=== PATIENT | female | born 1980 | race Caucasian/White ===

== ENCOUNTER 2016-02-21 16:45 | Outpatient (CLI) | payer MEDICAID ==
[~2016-02-21] VITALS: Ht 157.5 cm; Wt 96.2 kg
[~2016-02-21 16:45] MED LIST: HYDR118S10 PO
--- OUTSIDE RECORDS SUMMARY | 2016-02-21 16:49 | XMS REPORT ---
Author LINN Quiroz Organization [employer] Address Unknown Phone Unavailable Care Team Providers Care Housing Director Name Role Phone LINN MERINO CP Unavailable Allergies No Known Allergies Problems Problem Type Condition Code Onset Dates Condition Status Problem General counseling for initiation of other contraceptive measures V25.02 Active Problem examination or test, negative result V72.41 Active Problem Screening for malignant neoplasm of the cervix V76.2 Active Problem Need for prophylactic vaccination and inoculation, Influenza V04.81 Active Assessment Positive test Z32.01 Active Medications No Known Medications Procedures Procedure Coding System Code Date URINE TEST CPT-4 39230 Oct 11, 2015 Results No Known Results Summary Purpose [employer] Submission
[2016-02-21 17:00] VITALS: BP 136/83
[2016-02-21 18:00] VITALS: BP 156/74
[2016-02-21] MEDS ORDERED: D5 LR IV SOLUTION 1,000 ML IV ONE ×2 (18:08→18:15)
[2016-02-21] MEDS ORDERED: PREN1TAB86 PO (18:08)
[2016-02-21] MEDS ORDERED: FLU TRIvalent (5 YOA+) 2016-17 (AFLURIA) 0.5 ML IM ONE (18:45)
[2016-02-21 18:48] VITALS: BP 146/76
[2016-02-21 20:03] VITALS: BP 136/72
--- NOTE | 2016-02-22 08:39 | Physician Query-Final Dx ---
ELMO HICKEY 02/22/16 0839: Clinic Account Progress/Dx Physician Query: Please give diagnosis Date of Service Feb 21, 2016 at 16:45 LUIS EDUARDO LIMA MD 02/22/16 1225: Clinic Account Progress/Dx DIAGNOSIS: Diagnosis false labor ELMO HICKEY Feb 22, 2016 08:39 LUIS EDUARDO LIMA MD Feb 22, 2016 12:25
[2016-05-09] MEDS ORDERED: BUTA1CAP39 PO (17:12)
[2016-05-12] MEDS ORDERED: FERR-74 PO (09:18)
[2016-05-12] MEDS ORDERED: LABE200T3 PO (09:18)
[2016-05-12] MEDS ORDERED: DOCU100C37 PO (09:18)
[2016-05-12] MEDS ORDERED: HYDR-3812 PO (09:18)
[2016-05-12] MEDS ORDERED: IBUP-1773 PO (09:18)
[2016-05-14] MEDS ORDERED: AMLO10TA4 PO (10:37)
== END 2016-02-21 20:47 | disposition home or self-care (01) ==
LOC: WSo 16:45 → LDRP 16:46 → WSo 20:47
PROVIDERS: ATTEND Obstetrics & Gynecology
DX: O47.03 False labor before 37 completed weeks of gestation, third trimester (principal); Z3A.23 23 weeks gestation of pregnancy
CPT/HCPCS: 90471; 96360; 96361; 99214

== ENCOUNTER 2016-03-13 14:55 | Outpatient (CLI) | payer MEDICAID ==
[~2016-03-13] VITALS: Ht 154.9 cm; Wt 95.3 kg
[2016-03-13 14:41] VITALS: BP 145/82
[~2016-03-13 14:55] MED LIST changes: +D5 LR IV SOLUTION 1,000 ML IV ONE; +PREN1TAB86 PO
--- OUTSIDE RECORDS SUMMARY | 2016-03-13 14:58 | XMS REPORT | Continuity of Care Document ---
Author Author [facility] Organization [facility] Address Unknown Phone Unavailable Care Team Providers Care Corporate Sales Representative Name Role Phone LUIS EDUARDO LIMA MD PCP Insurance Providers Payer Name Policy Number Subscriber Name Relationship [facility] [id number] Edie Castellanos I 16 Self / Same As Patient Advance Directives Directive Response Recorded Date/Time Advance Directives No 02/21/16 5:00pm Health Care Power of Paper Reel Operator No 02/21/16 5:00pm Organ Donor Yes 02/21/16 5:00pm Resuscitation Status Full Code 02/21/16 5:00pm Problems No problem information available. Medications Current Home Medications Medication Dose Units Route Directions Days/Qty Instructions Start Date Vit W-Ca,Fe,Fa(<1 Mg) 1 Each 1 Each Oral Daily 02/21/16 Past Home Medications Medication Directions Ordered Status Acetaminophen/Hydrocodone Bitart 1 Each Tablet, 1 Each Oral As Needed Discontinued Social History Social History Problem Response Recorded Date/Time Recent Foreign Travel No 02/21/2016 5:00pm Recent Infectious Disease Exposure No 02/21/2016 5:00pm Smoking Status Never a Smoker 02/21/2016 5:00pm Query Response Start Date Stop Date Smoking Status Never a Smoker Hospital Discharge Instructions No hospital discharge instructions. Plan of Care Discharge Date 02/21/16 8:47pm Instructions/Education Provided OB OUTPATIENT DISCHARGE Prescriptions See Medication Section Functional Status No functional status results. Allergies, Adverse Reactions, Alerts No known allergies. Immunizations Name Given Type FLU TRIvalent 5 years - Adult 02/21/16 Administered Vital Signs Acute Vital Signs Vital Response Date/Time Temperature (Fahrenheit) 98.2 degrees F (97.6 - 99.5) 02/21/2016 8:03pm Temperature (Calculated Celsius) 36.01815 degrees C (36.4 - 37.5) 02/21/2016 8:03pm Temperature Source Tympanic 02/21/2016 8:03pm Pulse Rate (adult) 70 bpm (60 - 90) 02/21/2016 8:03pm Respiratory Rate 18 bpm (12 - 24) 02/21/2016 8:03pm O2 Sat by Pulse Oximetry 98 % (88 - 100) 02/21/2016 6:48pm Blood Pressure 136/72 mm Hg 02/21/2016 8:03pm Blood Pressure Mean 93 mm Hg 02/21/2016 8:03pm Pain Numeric Pain Scale 0-No Pain 02/21/2016 8:03pm Height (Feet) 5 feet 02/21/2016 5:00pm Height (Inches) 2.00 inches 02/21/2016 5:00pm Height (Calculated Centimeters) 157.230186 cm 02/21/2016 5:00pm Weight (Pounds) 212 pounds 02/21/2016 5:00pm Weight (Ounces) 0.0 oz 02/21/2016 5:00pm Weight (Calculated Grams) 50908.58 gm 02/21/2016 5:00pm Weight (Calculated Kilograms) 96.968430 kilograms 02/21/2016 5:00pm Calculated BMI 38.8 02/21/2016 5:00pm Results No known relevant diagnostic tests, laboratory data and/or discharge summary. Procedures No known history of procedures. Encounters Encounter Location Arrival/Admit Date Discharge/Depart Date Attending Provider Departed Clinic [facility] 02/21/16 4:45pm 02/21/16 8: 47pm LUIS EDUARDO LIMA MD
[2016-03-13] MEDS ORDERED: D5 LR IV SOLUTION 1,000 ML IV SCH (15:30)
[2016-03-13 15:35] LABS: BILIRUBIN,URINE NEGATIVE (NEGATIVE); KETONES,URINE 3+ (NEGATIVE); LEUKOCYTE ESTERASE ,URINE NEGATIVE (NEGATIVE); NITRITE,URINE NEGATIVE (NEGATIVE); PH,URINE 6 (5-9); PROTEIN,URINE 2+ (NEGATIVE); UROBILINOGEN,URINE 1 MG/DL (NORMAL)
[2016-03-13 15:47] LABS: BASOPHILS % (AUTO) 0 % (0-10); EOSINOPHILS # (AUTO) 0.2 10^3/uL (0.0-0.3); EOSINOPHILS % (AUTO) 3 % (0-10); LYMPHOCYTES # (AUTO) 1.2 X 10^3 (1.0-4.0); LYMPHOCYTES % (AUTO) 20 % (12-44); MEAN CORPUSCULAR HEMOGLOBIN 32 PG (25-34); MEAN CORPUSCULAR HGB CONC 35 G/DL (32-36); MEAN CORPUSCULAR VOLUME 89 FL (80-99); MEAN PLATELET VOLUME 10.3 FL (7.4-10.4); MONOCYTES # (AUTO) 0.4 X 10^3 (0.0-1.0); MONOCYTES % (AUTO) 7 % (0-12); NEUTROPHILS # (AUTO) 4.3 X 10^3 (1.8-7.8); NEUTROPHILS % (AUTO) 70 % (42-75); PLATELET COUNT 229 10^3/uL (130-400); RED BLOOD COUNT 3.68 10^6/uL (4.35-5.85); RED CELL DISTRIBUTION WIDTH 12.7 % (10.0-14.5); WHITE BLOOD COUNT 6.1 10^3/uL (4.3-11.0)
[2016-03-13 15:53] LABS: SQUAMOUS EPITHELIAL CELL,UR 25-50 /HPF; WBC,URINE 0-2 /HPF
[2016-03-13 15:54] VITALS: BP 140/87
[2016-03-13 16:06] LABS: BAND NEUTROPHILS 4 %; BASOPHILS % (MANUAL) 1 %; EOSINOPHILS % (MANUAL) 3 %; LYMPHOCYTES % (MANUAL) 18 %; NEUTROPHILS % (MANUAL) 69 %
[2016-03-13 16:11] LABS: ALANINE AMINOTRANSFERASE 10 U/L (0-55); ALBUMIN 3.2 G/DL (3.2-4.5); ANION GAP 9 MMOL/L (5-14); ASPARTATE AMINO TRANSFERASE 10 U/L (5-34); BILIRUBIN,TOTAL 0.3 MG/DL (0.1-1.0); BLOOD UREA NITROGEN 4 MG/DL (7-18); BUN/CREATININE RATIO 7; CALCIUM 8.2 MG/DL (8.5-10.1); CARBON DIOXIDE 24 MMOL/L (21-32); CHLORIDE 104 MMOL/L (98-107); CREATININE SERUM 0.54 MG/DL (0.60-1.30); GFR ESTIMATED > 60; GLUCOSE 91 MG/DL (70-105); POTASSIUM 2.6 MMOL/L (3.6-5.0); SODIUM 137 MMOL/L (135-145); TOTAL PROTEIN 5.6 G/DL (6.4-8.2)
[2016-03-13 16:43] VITALS: BP 162/71
[2016-03-13 17:01] LABS: PROTEIN/CREATININE RATIO 0.13
[2016-03-13] MEDS: KCL 20 MEQ TAB (K-DUR) PO NR ×2 (17:50→17:51)
[2016-03-13 17:58] VITALS: BP 173/90
[2016-03-13 18:03] VITALS: BP 144/74
[2016-03-13] MEDS ORDERED: ASPI-999 PO (18:23)
[2016-03-13 18:35] VITALS: BP 144/74
--- NOTE | 2016-03-14 08:30 | Physician Query-Final Dx ---
ELMO HICKEY 03/14/16 0830: Clinic Account Progress/Dx Physician Query: Please give diagnosis Date of Service Mar 13, 2016 at 14:55 LUIS EDUARDO LIMA MD 03/14/16 1615: Clinic Account Progress/Dx DIAGNOSIS: Diagnosis viral gastroenteritis in ELMO HICKEY Mar 14, 2016 08:30 LUIS EDUARDO LIMA MD Mar 14, 2016 16:15
[2016-05-09] MEDS ORDERED: BUTA1CAP39 PO (17:12)
[2016-05-12] MEDS ORDERED: DOCU100C37 PO (09:18)
[2016-05-12] MEDS ORDERED: LABE200T3 PO (09:18)
[2016-05-12] MEDS ORDERED: HYDR-3812 PO (09:18)
[2016-05-12] MEDS ORDERED: IBUP-1773 PO (09:18)
[2016-05-12] MEDS ORDERED: FERR-74 PO (09:18)
[2016-05-14] MEDS ORDERED: AMLO10TA4 PO (10:37)
== END 2016-03-13 18:35 | disposition home or self-care (01) ==
LOC: WSo 14:55 → LDRP 14:55 → WSo 18:35
PROVIDERS: ATTEND Obstetrics & Gynecology
DX: O98.512 Other viral diseases complicating pregnancy, second trimester (principal); A08.4 Viral intestinal infection, unspecified; Z3A.26 26 weeks gestation of pregnancy
CPT/HCPCS: 36415; 80053; 81000; 82570; 84156; 85007; 85027; 87088; 96360; 96361; 99214

== ENCOUNTER → 2016-04-13 | Outpatient (CLI) | payer MEDICAID ==
[~2016-04-13] MED LIST changes: +AMLO10TA4 PO; +ASPI-999 PO; +BETA6VIA IM; +BUTA1CAP39 PO; -D5 LR IV SOLUTION 1,000 ML IV ONE; +DOCU100C37 PO; +FERR-74 PO; +HYDR-3812 PO; +IBUP-1773 PO; +LABE200T3 PO; +METH250T PO; +METH500T2 PO
--- OUTSIDE RECORDS SUMMARY | 2016-04-13 09:47 | XMS REPORT | Continuity of Care Document ---
Author Author [facility] Organization [facility] Address Unknown Phone Unavailable Care Team Providers Care Naval Aircrewman Name Role Phone LUIS EDUARDO LIMA MD PCP Insurance Providers Payer Name Policy Number Subscriber Name Relationship [facility] [id number] Edie Castellanos I 18 Self / Same As Patient Advance Directives Directive Response Recorded Date/Time Advance Directives No 02/21/16 5:00pm Health Care Power of Conditioning Machine Operator No 02/21/16 5:00pm Organ Donor Yes [...] - 99.5) 02/21/2016 8:03pm Temperature (Calculated Celsius) 36.89284 degrees C (36.4 - 37.5) 02/21/2016 8:03pm [...] 2.00 inches 02/21/2016 5:00pm Height (Calculated Centimeters) 157.042034 cm 02/21/2016 5:00pm Weight (Pounds) 212 pounds 02/21/2016 5:00pm Weight (Ounces) 0.0 oz 02/21/2016 5:00pm Weight (Calculated Grams) 89507.58 gm 02/21/2016 5:00pm Weight (Calculated Kilograms) 96.606801 kilograms 02/21/2016 5:00pm Calculated BMI 38.8 02/21/2016 5:00pm Results No known relevant diagnostic tests, laboratory data and/or discharge summary. Procedures No known history of procedures. Encounters Encounter Location Arrival/Admit Date Discharge/Depart Date Attending Provider Departed Clinic [facility] 02/21/16 4:45pm 02/21/16 8: 47pm LUIS EDUARDO LIMA MD
[2016-04-13 10:02] LABS: PROTEIN/CREATININE RATIO 0.22
== END ==
LOC: LABNPT 09:30
PROVIDERS: ATTEND Obstetrics & Gynecology
DX: O14.03 Mild to moderate pre-eclampsia, third trimester (principal)
CPT/HCPCS: 82570; 84156

== ENCOUNTER 2016-04-22 18:10 | Observation (INO) | payer MEDICAID ==
[~2016-04-22] VITALS: Ht 154.9 cm; Wt 94.8 kg
[2016-04-22] VITALS (10 sets, daily range): BP systolic 150–191; BP diastolic 77–109
[~2016-04-22 18:10] MED LIST changes: -AMLO10TA4 PO; -BETA6VIA IM; -BUTA1CAP39 PO; -DOCU100C37 PO; -FERR-74 PO; -HYDR-3812 PO; -IBUP-1773 PO; -LABE200T3 PO; -METH250T PO; -METH500T2 PO
--- OUTSIDE RECORDS SUMMARY | 2016-04-22 18:24 | XMS REPORT | Continuity of Care Document ---
Author Author [facility] Organization [facility] Address Unknown Phone Unavailable Care Team Providers Care Decaler Name Role Phone LUIS EDUARDO LIMA MD PCP Insurance Providers Payer Name Policy Number Subscriber Name Relationship [facility] [id number] Edie Castellanos I 16 Self / Same As Patient Advance Directives Directive Response Recorded Date/Time Advance Directives No 02/21/16 5:00pm Health Care Power of Supply Assistant No 02/21/16 5:00pm Organ Donor Yes 02/21/16 [...] - 99.5) 02/21/2016 8:03pm Temperature (Calculated Celsius) 36.24847 degrees C (36.4 - 37.5) 02/21/2016 8:03pm [...] 2.00 inches 02/21/2016 5:00pm Height (Calculated Centimeters) 157.116897 cm 02/21/2016 5:00pm Weight (Pounds) 212 pounds 02/21/2016 5:00pm Weight (Ounces) 0.0 oz 02/21/2016 5:00pm Weight (Calculated Grams) 87670.58 gm 02/21/2016 5:00pm Weight (Calculated Kilograms) 96.538623 kilograms 02/21/2016 5:00pm Calculated BMI 38.8 02/21/2016 5:00pm Results No known relevant diagnostic tests, laboratory data and/or discharge summary. Procedures No known history of procedures. Encounters Encounter Location Arrival/Admit Date Discharge/Depart Date Attending Provider Departed Clinic [facility] 02/21/16 4:45pm 02/21/16 8: 47pm LUIS EDUARDO LIMA MD
[2016-04-22] MEDS ORDERED: METH250T PO (18:33)
[2016-04-22 18:47] LABS: RED BLOOD COUNT 3.47 10^6/uL (4.35-5.85); RED CELL DISTRIBUTION WIDTH 12.7 % (10.0-14.5); WHITE BLOOD COUNT 5.4 10^3/uL (4.3-11.0)
[2016-04-22 19:07] LABS: ALANINE AMINOTRANSFERASE 13 U/L (0-55); ALBUMIN 3.2 G/DL (3.2-4.5); ANION GAP 13 MMOL/L (5-14); ASPARTATE AMINO TRANSFERASE 15 U/L (5-34); BILIRUBIN,TOTAL 0.3 MG/DL (0.1-1.0); BLOOD UREA NITROGEN 7 MG/DL (7-18); BUN/CREATININE RATIO 13; CALCIUM 8.4 MG/DL (8.5-10.1); CARBON DIOXIDE 22 MMOL/L (21-32); CHLORIDE 104 MMOL/L (98-107); CREATININE SERUM 0.56 MG/DL (0.60-1.30); GFR ESTIMATED > 60; GLUCOSE 91 MG/DL (70-105); LACTATE DEHYDROGENASE 214 U/L (125-220); SODIUM 139 MMOL/L (135-145); TOTAL PROTEIN 5.8 G/DL (6.4-8.2); URIC ACID 3.8 MG/DL (2.6-7.2)
[2016-04-22 19:08] LABS: PROTEIN/CREATININE RATIO 0.19
[2016-04-22 19:10] LABS: POTASSIUM 2.5 MMOL/L (3.6-5.0)
[2016-04-22] MEDS ORDERED: METHYLDOPA 250 MG PO SCH (20:00)
[2016-04-23 00:57] VITALS: BP 134/75
[2016-04-23 05:01] VITALS: BP 155/81
[2016-04-23] MEDS ORDERED: METHYLDOPA 250 MG PO SCH (06:00)
[2016-04-23] MEDS ORDERED: METH500T2 PO (07:18)
[2016-04-23 07:27] VITALS: BP 145/68
[2016-04-23 07:50] VITALS: BP 145/68
--- OUTSIDE RECORDS SUMMARY | 2016-04-24 10:38 | XMS REPORT | Continuity of Care Document ---
Author Author [facility] Organization [facility] Address Unknown Phone Unavailable Care Team Providers Care Marble Worker Name Role Phone LUIS EDUARDO LIMA MD PCP Insurance Providers Payer Name Policy Number Subscriber Name Relationship [facility] [id number] Edie Castellanos I 16 Self / Same As Patient Advance Directives Directive Response Recorded Date/Time Advance Directives No 04/22/16 6:27pm Health Care Power of Documentation Designer No 04/22/16 6:27pm Organ Donor No 04/22/16 6:27pm Resuscitation Status Full Code 04/22/16 6:27pm Problems No problem information available. Medications Current Home Medications Medication Dose Units Route Directions Days/Qty Instructions Start Date Vit W-Ca,Fe,Fa(<1 Mg) 1 Each 1 Each Oral Daily 02/21/16 Aspirin 81 Mg 81 Mg Oral Daily 03/13/16 Methyldopa 500 Mg 500 Mg Oral Twice A Day 04/23/16 Past Home Medications Medication Directions Ordered Status Acetaminophen/Hydrocodone Bitart 1 Each Tablet, 1 Each Oral As Needed Discontinued Methyldopa 250 Mg Tablet, 250 Mg Oral Twice A Day 04/22/16 Discontinued Social History Social History Problem Response Recorded Date/Time Recent Foreign Travel No 04/22/2016 6:27pm Recent Infectious Disease Exposure No 04/22/2016 6:27pm Smoking Status Never a Smoker 04/22/2016 6:27pm Query Response Start Date Stop Date Smoking Status Never a Smoker Hospital Discharge Instructions No hospital discharge instructions. Plan of Care Discharge Date 04/23/16 7:15am Disposition IP-[facility] TO CODE Instructions/Education Provided OB OUTPATIENT DISCHARGE Forms Provided [facility]/OP Prescriptions See Medication Section Functional Status Query Response Date Recorded Patient Orientation Person Place Time Situation Normal For Age April 24, 2016 10:35am Allergies, Adverse Reactions, Alerts No known allergies. Immunizations No immunization records. Vital Signs Acute Vital Signs Vital Response Date/Time Temperature (Fahrenheit) 98.3 degrees F (97.6 - 99.5) 04/23/2016 7:50am Temperature (Calculated Celsius) 36.82412 degrees C (36.4 - 37.5) 04/22/2016 8:16pm Temperature Source Tympanic 04/23/2016 7:50am Pulse Rate (adult) 78 bpm (60 - 90) 04/23/2016 7:50am Respiratory Rate 18 bpm (12 - 24) 04/23/2016 7:50am Blood Pressure 145/68 mm Hg 04/23/2016 7:50am Blood Pressure Mean 93 mm Hg 04/23/2016 7:27am Pain Numeric Pain Scale 0-No Pain 04/23/2016 7:50am Height (Feet) 5 feet 04/22/2016 6:26pm Height (Inches) 1.00 inches 04/22/2016 6:26pm Height (Calculated Centimeters) 154.002356 cm 04/22/2016 6:26pm Weight (Pounds) 209 pounds 04/22/2016 6:26pm Weight (Ounces) 0.0 oz 04/22/2016 6:26pm Weight (Calculated Grams) 77819.81 gm 04/22/2016 6:26pm Weight (Calculated Kilograms) 94.429507 kilograms 04/22/2016 6:26pm Calculated BMI 39.5 04/22/2016 6:26pm Results Laboratory Results Test Name Result Units Flags Reference Collection Date/Time Result Date/ Time Comments Urine Protein 31 MG/DL H 6-12 04/13/2016 9:30am 04/13/2016 10:07am Urine Creatinine 142 MG/DL H 30-125 04/13/2016 9:30am 04/13/2016 10:07am Urine Protein/Creatinine Ratio 0.22 04/13/2016 9:30am 04/13/2016 10 :07am Pending Laboratory Results Test Name Collection Date/Time Procedures No known history of procedures. Encounters Encounter Location Arrival/Admit Date Discharge/Depart Date Attending Provider Admitted Inpatient (obs) [facility] 04/22/16 6:10pm LUIS EDUARDO LIMA MD Registered Clinic [facility] 04/13/16 9:30am LUIS EDUARDO LIMA MD
--- NOTE | 2016-04-25 07:00 | Physician Query-Final Dx ---
MANFRED AVILA 04/25/16 0700: Clinic Account Progress/Dx Physician Query: Please give diagnosis Date of Service Progress Note: Manfred [phone] LUIS EDUARDO LIMA MD 04/25/16 0803: Clinic Account Progress/Dx DIAGNOSIS: Diagnosis ERNIE MANFRED AVILA Apr 25, 2016 07:00 LUIS EDUARDO LIMA MD Apr 25, 2016 08:03
[2016-05-09] MEDS ORDERED: BUTA1CAP39 PO (17:12)
[2016-05-12] MEDS ORDERED: DOCU100C37 PO (09:18)
[2016-05-12] MEDS ORDERED: LABE200T3 PO (09:18)
[2016-05-12] MEDS ORDERED: FERR-74 PO (09:18)
[2016-05-12] MEDS ORDERED: HYDR-3812 PO (09:18)
[2016-05-12] MEDS ORDERED: IBUP-1773 PO (09:18)
[2016-05-14] MEDS ORDERED: AMLO10TA4 PO (10:37)
== END 2016-04-23 07:15 | disposition home or self-care (01) ==
LOC: LDRP 18:10 → WSo 18:21 → LDRP 18:21 → UNDOADMOB 21:59 → LDRP 21:59 → WSo 21:59 → LDRP 04-23 07:50 → UNDODISOB 04-23 07:50 → EDSTATUS 04-24 10:34
PROVIDERS: ADMIT Obstetrics & Gynecology; ATTEND Obstetrics & Gynecology
DX: O13.3 Gestational [pregnancy-induced] hypertension without significant proteinuria, third trimester (principal); Z3A.32 32 weeks gestation of pregnancy
CPT/HCPCS: 36415; 80053; 82570; 83615; 84156; 84550; 85027; 99211; G0378

== ENCOUNTER 2016-05-07 17:05 | Observation (INO) | payer MEDICAID ==
[2016-05-07] VITALS (11 sets, daily range): BP systolic 144–175; BP diastolic 78–90
[~2016-05-07] VITALS: Ht 154.9 cm; Wt 97.1 kg
[~2016-05-07 17:05] MED LIST changes: +METH250T PO; +METH500T2 PO
--- OUTSIDE RECORDS SUMMARY | 2016-05-07 17:11 | XMS REPORT | Continuity of Care Document ---
Author Author [facility] Organization [facility] Address Unknown Phone Unavailable Care Team Providers Care Retail Wireless Sales Consultant Name Role Phone LUIS EDUARDO LIMA MD PCP Insurance Providers Payer Name Policy Number Subscriber Name Relationship [facility] [id number] Edie Castellanos I 16 Self / Same As Patient Advance Directives Directive Response Recorded Date/Time Advance Directives No 04/22/16 6:27pm Health Care Power of Seafood Clerk No 04/22/16 6:27pm Organ Donor No 04/22/16 [...] of Care Discharge Date 04/23/16 7:15am Disposition IP-[facility] TO CODE Instructions/Education Provided OB OUTPATIENT DISCHARGE [...] - 99.5) 04/23/2016 7:50am Temperature (Calculated Celsius) 36.49596 degrees C (36.4 - 37.5) 04/22/2016 8:16pm [...] 1.00 inches 04/22/2016 6:26pm Height (Calculated Centimeters) 154.526878 cm 04/22/2016 6:26pm Weight (Pounds) 209 pounds 04/22/2016 6:26pm Weight (Ounces) 0.0 oz 04/22/2016 6:26pm Weight (Calculated Grams) 87467.81 gm 04/22/2016 6:26pm Weight (Calculated Kilograms) 94.961256 kilograms 04/22/2016 6:26pm Calculated BMI 39.5 04/22/2016 [...] Attending Provider Admitted Inpatient (obs) [facility] 04/22/16 6:10pm LUIS EDUARDO LIMA MD Registered Clinic [facility] 04/13/16 9:30am LUIS EDUARDO LIMA MD
[2016-05-07 18:02] LABS: BASOPHILS % (AUTO) 0 % (0-10); EOSINOPHILS # (AUTO) 0.1 10^3/uL (0.0-0.3); EOSINOPHILS % (AUTO) 2 % (0-10); LYMPHOCYTES # (AUTO) 1.1 X 10^3 (1.0-4.0); LYMPHOCYTES % (AUTO) 23 % (12-44); MEAN CORPUSCULAR HEMOGLOBIN 29 PG (25-34); MEAN CORPUSCULAR HGB CONC 33 G/DL (32-36); MEAN CORPUSCULAR VOLUME 86 FL (80-99); MEAN PLATELET VOLUME 9.7 FL (7.4-10.4); MONOCYTES # (AUTO) 0.4 X 10^3 (0.0-1.0); MONOCYTES % (AUTO) 9 % (0-12); NEUTROPHILS # (AUTO) 3.1 X 10^3 (1.8-7.8); NEUTROPHILS % (AUTO) 66 % (42-75); PLATELET COUNT 221 10^3/uL (130-400); RED BLOOD COUNT 3.41 10^6/uL (4.35-5.85); RED CELL DISTRIBUTION WIDTH 13.1 % (10.0-14.5); WHITE BLOOD COUNT 4.7 10^3/uL (4.3-11.0)
[2016-05-07 18:19] LABS: ALANINE AMINOTRANSFERASE 7 U/L (0-55); ALBUMIN 3.1 G/DL (3.2-4.5); ANION GAP 12 MMOL/L (5-14); ASPARTATE AMINO TRANSFERASE 10 U/L (5-34); BILIRUBIN,TOTAL 0.4 MG/DL (0.1-1.0); BLOOD UREA NITROGEN 6 MG/DL (7-18); BUN/CREATININE RATIO 11; CALCIUM 8.1 MG/DL (8.5-10.1); CARBON DIOXIDE 22 MMOL/L (21-32); CHLORIDE 106 MMOL/L (98-107); CREATININE SERUM 0.57 MG/DL (0.60-1.30); GFR ESTIMATED > 60; GLUCOSE 83 MG/DL (70-105); POTASSIUM 2.6 MMOL/L (3.6-5.0); SODIUM 140 MMOL/L (135-145); TOTAL PROTEIN 5.5 G/DL (6.4-8.2); URIC ACID 3.6 MG/DL (2.6-7.2)
--- NOTE | 2016-05-07 18:43 | Diagnostic Imaging Report ---
INDICATION: . Hypertension. No reactive tracing. COMPARISON: None. FINDINGS: Real-time grayscale and Doppler ultrasound of the gravid uterus is performed. Biophysical profile is performed as well. There is a single live intrauterine gestation in cephalic position. Estimated gestational age based on LMP is 34 weeks 1 day. Estimated gestational age based on today's ultrasound is 34 weeks 6 days. Cardiac activity is present with a heart rate of 165 beats per minute. Placenta appears anterior without previa. Growth parameters measurements are as follows: BPD: 8.5 cm (34 weeks 3 days). HC: 30.6 cm (34 weeks 1 day). AC: 32.2 cm (36 weeks 1 day). FL: 6.7 cm (34 weeks 4 days). HC/AC: 0.95. weight: 2644 g +/-386 g/5 lbs 13 oz +/-14 ounces (78th percentile). Biophysical profile score: movement: 2/2. breathin/2. posture and tone: 2/2. Amniotic fluid volume: 2/2 (amniotic fluid index is 7.6 cm). IMPRESSION: 1. Live intrauterine gestation in cephalic position without acute abnormality detected. Growth parameters and ratios as described above. 2. biophysical profile score is 8/8. heart rate is 165 beats per minute. Dictated by: Dictated on workstation # [id number]
[2016-05-07 19:39] LABS: PROTEIN/CREATININE RATIO 0.13
[2016-05-07] MEDS ORDERED: NS IV 1000 ML 1,000 ML ONE (20:10)
[2016-05-07] MEDS: NS IV 1000 ML 1,000 ML IV SCH (20:36)
[2016-05-07] MEDS ORDERED: PROMETHAZINE INJ 25 MG/ML (PHENERGAN) AMP IVP ONE (21:00)
[2016-05-07] MEDS ORDERED: BETAMETHASONE ACE/NA PHOS 6 MG/ML (CELESTONE SOLUSPAN) IM ONE (21:00)
[2016-05-07] MEDS ORDERED: ACETAMINOPHEN 500 MG TAB (TYLENOL) PO ONE (21:00)
[2016-05-07] MEDS ORDERED: ACETAMINOPHEN 500 MG TAB (TYLENOL) ONE (21:11)
[2016-05-07] MEDS ORDERED: PROMETHAZINE INJ 25 MG/ML (PHENERGAN) AMP ONE (21:13)
[2016-05-08] VITALS: BP 133/70
[2016-05-08 05:00] VITALS: BP 139/71
[2016-05-08] MEDS: NS IV 1000 ML 1,000 ML IV SCH (06:43)
[2016-05-08 07:42] VITALS: BP 141/78
[2016-05-08] MEDS ORDERED: BETA6VIA IM (08:12)
[2016-05-08] MEDS ORDERED: METH500T2 PO (08:15)
--- NOTE | 2016-05-08 08:15 | History & Physical-OB/GYN ---
History of Present Illness History of Present Illness Reason for visit/HPI Severe SIFUENTES and Elevated BP. This 35-year-old female is a patient of Dr. Villalobos's and I admitted last night for elevations in blood pressure associated with headache. This morning the patient reports feeling somewhat better. Still has a slight headache, denies changes in vision, denies right upper quadrant pain. Yesterday evening she was admitted with blood pressures in the 160s over 90s, a preeclampsia lab workup was performed, biophysical profile, and monitoring overnight. Date of Admission May 07, 2016 at 8:03 pm I consulted on this patient on 05/08/16 08:09 Attending Physician Linn Fraire DO Admitting Physician Baltazar Villalobos MD Consult Allergies and Home Medications Allergies Coded Allergies: No Known Drug Allergies (Unverified , 12/24/10) Home Medications Aspirin 81 Mg Tab.chew 81 MG PO DAILY (Reported) Methyldopa 500 Mg Tablet 500 MG PO BID (Reported) Vit W-Ca,Fe,FA(<1 mg) 1 Each Tablet 1 EACH PO DAILY (Reported) Past Tcztyut-Enmvvx-Ybkibm Hx Patient Social History Smoking Status: Never a Smoker Physical Abuse Screen: No Sexual Abuse: No Recent Foreign Travel: No Contact w/other who traveled: No Recent Infectious Disease Expo: No Immunizations Up To Date Date of Influenza Vaccine: Mar 09, 2016 Reproductive System Hx : 4 Hx Para: 3 Hx Total # of Abortions (Spona: 0 Constitutional: see HPI EENTM: see HPI Respiratory: see HPI Cardiovascular: see HPI Gastrointestinal: see HPI Genitourinary: see HPI : Yes Musculoskeletal: see HPI Skin: see HPI Psychiatric/Neurological: See HPI All Other Systems Reviewed Negative Unless Noted: Yes Physical Exam Physical Exam Vital Signs Vital Signs Date Time Temp Pulse Resp B/P Pulse Ox O2 Delivery O2 Flow Rate FiO2 05/08/16 07:42 97.9 70 18 141/78 96 Room Air 05/08/16 05:00 96.8 80 20 139/71 Room Air 05/08/16 00:00 96.9 80 20 133/70 Room Air 05/07/16 21:29 98.8 05/07/16 20:20 80 20 160/82 Room Air 05/07/16 20:05 77 20 148/81 Room Air 05/07/16 19:50 80 20 161/81 Room Air 05/07/16 19:35 88 20 145/79 Room Air 05/07/16 19:20 82 20 159/82 Room Air 05/07/16 19:05 76 20 160/78 Room Air 05/07/16 18:50 80 20 144/82 Room Air 05/07/16 18:35 86 20 154/81 Room Air 05/07/16 18:18 90 20 165/88 Room Air 05/07/16 17:35 86 20 159/79 Room Air 05/07/16 17:20 91 20 175/90 Room Air I & O 05/08/16 07:00 Intake Total 980 ml Balance 980 ml Capillary Refill : Labs Laboratory Tests 05/07/16 17:20: Urine Creatinine 159H, Urine Protein 20H, Urine Protein/Creatinine Ratio 0.13 05/07/16 17:56: Alanine Aminotransferase (ALT/SGPT) 7, Albumin 3.1L, Alkaline Phosphatase 91, Anion Gap 12, Aspartate Amino Transf (AST/SGOT) 10, BUN/Creatinine Ratio 11, Basophils # (Auto) 0.0, Basophils (%) (Auto) 0, Blood Urea Nitrogen 6L, Calcium Level 8.1L, Carbon Dioxide Level 22, Chloride Level 106, Creatinine 0.57L, Eosinophils # (Auto) 0.1, Eosinophils (%) (Auto) 2, Estimat Glomerular Filtration Rate > 60, Glucose Level 83, Hematocrit 29L, Hemoglobin 9.8L, Lymphocytes # (Auto) 1.1, Lymphocytes (%) (Auto) 23, Mean Corpuscular Hemoglobin 29, Mean Corpuscular Hemoglobin Concent 33, Mean Corpuscular Volume 86, Mean Platelet Volume 9.7, Monocytes # (Auto) 0.4, Monocytes (%) (Auto) 9, Neutrophils # (Auto) 3.1, Neutrophils (%) (Auto) 66, Platelet Count 221, Potassium Level 2.6L, Red Blood Count 3.41L, Red Cell Distribution Width 13.1, Sodium Level 140, Total Bilirubin 0.4, Total Protein 5.5L, Uric Acid 3.6, White Blood Count 4.7 Radiology Studies INDICATION: . Hypertension. No reactive tracing. COMPARISON: None. FINDINGS: Real-time grayscale and Doppler ultrasound of the gravid uterus is performed. Biophysical profile is performed as well. There is a single live intrauterine gestation in cephalic position. Estimated gestational age based on LMP is 34 weeks 1 day. Estimated gestational age based on today's ultrasound is 34 weeks 6 days. Cardiac activity is present with a heart rate of 165 beats per minute. Placenta appears anterior without previa. Growth parameters measurements are as follows: BPD: 8.5 cm (34 weeks 3 days). HC: 30.6 cm (34 weeks 1 day). AC: 32.2 cm (36 weeks 1 day). FL: 6.7 cm (34 weeks 4 days). HC/AC: 0.95. weight: 2644 g +/-386 g/5 lbs 13 oz +/-14 ounces (78th percentile). Biophysical profile score: movement: 2/2. breathin/2. posture and tone: 2/2. Amniotic fluid volume: 2/2 (amniotic fluid index is 7.6 cm). IMPRESSION: 1. Live intrauterine gestation in cephalic position without acute abnormality detected. Growth parameters and ratios as described above. 2. biophysical profile score is 8/8. heart rate is 165 beats per minute. Dictated by: Dictated on workstation # [id number] Dict: 05/07/16 182 Trans: 05/07/16 1849 [id number] Interpreted by: SURYA GANN DO Electronically signed by:SURYA GANN DO 05/07/16 9001 General Appearance: No Apparent Distress, WD/WN Respiratory: Normal Breath Sounds Cardiovascular: Regular Rate, Rhythm Abdominal: non tender (uterine fundus appropriate for gestational age), soft Cervix: Other (closed, thick, -3) Cervix OS: closed Uterus: Other (gravid) Comments Overnight NST reactive: BL 140 moderate variability + accels no decels. Contractions irregular q 4-15 min Assessment/Plan Assessment and Plan I am having the patient increase her methyldopa dose to 500 mg 3 times a day, and I discussed with the patient being on modified bed rest for the next week to help control her blood pressures at home. The patient was supposed to come in and have an NST tomorrow I'm having her return on Saturday to have an NST. She has an appointment with Dr. Villalobos early next week I told her that if she continues to do well to keep her appointment with Dr. Villalobos. labor precautions as well as preeclampsia precautions reviewed with the patient in detail all of her questions were answered. Betamethasone x 2 doses 24 hr 05/07-05/08 were given for possible delivery. Problems: Admission Diagnosis 35 yo @ 34.2 weeks Gestational HTN, likely superimposed on CHTN Headache Previous c/s Advanced maternal age Obesity FENECH,LINN Roberts DO May 08, 2016 8:15 am Hemoglobin 9.8 L 11.5-16.0 G/DL Lymphocytes # (Auto) 1.1 1.0-4.0 X 10^3 Lymphocytes (%) (Auto) 23 12-44 % Mean Corpuscular Hemoglobin 29 25-34 PG Mean Corpuscular Hemoglobin Concent 33 32-36 G/DL Mean Corpuscular Volume 86 80-99 FL Mean Platelet Volume 9.7 7.4-10.4 FL Monocytes # (Auto) 0.4 0.0-1.0 X 10^3 Monocytes (%) (Auto) 9 0-12 % Neutrophils # (Auto) 3.1 1.8-7.8 X 10^3 Neutrophils (%) (Auto) 66 42-75 % Platelet Count 221 130-400 10^3/uL Potassium Level 2.6 L 3.6-5.0 MMOL/L Red Blood Count 3.41 L 4.35-5.85 10^6/uL Red Cell Distribution Width 13.1 10.0-14.5 % Sodium Level 140 135-145 MMOL/L Total Bilirubin 0.4 0.1-1.0 MG/DL Total Protein 5.5 L 6.4-8.2 G/DL Uric Acid 3.6 2.6-7.2 MG/DL White Blood Count 4.7 4.3-11.0 10^3/uL INDICATION: . Hypertension. No reactive tracing. COMPARISON: None. FINDINGS: Real-time grayscale and Doppler ultrasound of the gravid uterus is performed. Biophysical profile is performed as well. There is a single live intrauterine gestation in cephalic position. Estimated gestational age based on LMP is 34 weeks 1 day. Estimated gestational age based on today's ultrasound is 34 weeks 6 days. Cardiac activity is present with a heart rate of 165 beats per minute. Placenta appears anterior without previa. Growth parameters measurements are as follows: BPD: 8.5 cm (34 weeks 3 days). HC: 30.6 cm (34 weeks 1 day). AC: 32.2 cm (36 weeks 1 day). FL: 6.7 cm (34 weeks 4 days). HC/AC: 0.95. weight: 2644 g +/-386 g/5 lbs 13 oz +/-14 ounces (78th percentile). Biophysical profile score: movement: 2/2. breathin/2. posture and tone: 2/2. Amniotic fluid volume: 2/2 (amniotic fluid index is 7.6 cm). IMPRESSION: 1. Live intrauterine gestation in cephalic position without acute abnormality detected. Growth parameters and ratios as described above. 2. biophysical profile score is 8/8. heart rate is 165 beats per minute. Dictated by: Dictated on workstation # [id number] Dict: 05/07/16 1826 Trans: 05/07/16 1849 [id number] Interpreted by: SURYA GANN DO Electronically signed by:SURYA GANN DO 05/07/16 1852 LINN FRAIRE DO May 08, 2016 8:15 am
[2016-05-08 08:30] VITALS: BP 141/78
[2016-05-09] MEDS ORDERED: BUTA1CAP39 PO (17:12)
--- OUTSIDE RECORDS SUMMARY | 2016-05-13 05:06 | XMS REPORT ---
Author LINN Quiroz Organization [employer] Address Unknown Phone Unavailable Care Team Providers Care Bander Hand Name Role Phone LINN MERINO CP Unavailable [...] Coding System Code Date URINE TEST CPT-4 68152 Oct 11, 2015 Results No Known Results Summary Purpose Next [employer] Submission
--- NOTE | 2016-05-14 11:04 | Physician Query-Final Dx ---
JOHN FAUST 05/14/16 1104: Final Diagnosis Give Final Diagnosis Please give Final Diagnosis LINN QUISPE DO 05/14/16 1136: Final Diagnosis Give Final Diagnosis 34.5 week RLTCS Uncontrolled GHTN TAIA JOHN FAUST May 14, 2016 11:04 LINN QUISPE DO May 14, 2016 11:36
== END 2016-05-08 08:13 | disposition home or self-care (01) ==
LOC: LDRP 17:05 → WSo 17:07 → UNDOADMOB 20:03 → LDRP 20:03 → WSo 20:03 → UNDODISOB 05-08 08:30 → EDSTATUS 05-09 13:00
PROVIDERS: ADMIT Obstetrics & Gynecology; ATTEND Obstetrics & Gynecology
DX: O13.3 Gestational [pregnancy-induced] hypertension without significant proteinuria, third trimester (principal); O10.013 Pre-existing essential hypertension complicating pregnancy, third trimester; O34.211 Maternal care for low transverse scar from previous cesarean delivery; O09.523 Supervision of elderly multigravida, third trimester; O99.213 Obesity complicating pregnancy, third trimester; E66.9 Obesity, unspecified; Z68.41 Body mass index [BMI] 40.0-44.9, adult; Z3A.34 34 weeks gestation of pregnancy
CPT/HCPCS: 36415; 76805; 76819; 80053; 82570; 84156; 84550; 85025; 96361; 96372; 96374; 99211; G0378

== ENCOUNTER 2016-05-08 20:38 | Outpatient (CLI) | payer MEDICAID ==
[~2016-05-08 20:38] MED LIST changes: +BETA6VIA IM
[2016-05-08] MEDS ORDERED: BETAMETHASONE ACE/NA PHOS 6 MG/ML (CELESTONE SOLUSPAN) ONE (20:51)
[2016-05-08] MEDS ORDERED: BETAMETHASONE ACE/NA PHOS 6 MG/ML (CELESTONE SOLUSPAN) IM SCH (21:00)
--- NOTE | 2016-05-09 08:53 | Physician Query-Final Dx ---
ELMO HICKEY 05/09/16 0853: Clinic Account Progress/Dx Physician Query: Please give diagnosis Date of Service May 08, 2016 at 20:38 LINN QUISPE DO 05/09/16 1023: Clinic Account Progress/Dx DIAGNOSIS: Diagnosis 34 week IUP AMA Gestational HTN ELMO HICKEY May 09, 2016 08:53 LINN QUISPE DO May 09, 2016 10:23
[2016-05-09] MEDS ORDERED: BUTA1CAP39 PO ×2 (17:12)
== END 2016-05-08 20:56 | disposition home or self-care (01) ==
LOC: WSo 20:38 → LDRP 20:38 → WSo 20:56
PROVIDERS: ATTEND Obstetrics & Gynecology
DX: O13.3 Gestational [pregnancy-induced] hypertension without significant proteinuria, third trimester (principal); O09.523 Supervision of elderly multigravida, third trimester; Z3A.34 34 weeks gestation of pregnancy
CPT/HCPCS: 96372

== ENCOUNTER 2016-05-09 09:45 | Outpatient (CLI) | payer MEDICAID ==
[~2016-05-09] VITALS: Ht 154.9 cm; Wt 98.4 kg
[2016-05-09] VITALS (8 sets, daily range): BP systolic 136–155; BP diastolic 74–82
[2016-05-09] MEDS ORDERED: ACETAMINOPHEN 500 MG TAB (TYLENOL) PO NR (11:00)
[2016-05-09 11:20] LABS: BASOPHILS % (AUTO) 0 % (0-10); EOSINOPHILS % (AUTO) 0 % (0-10); LYMPHOCYTES # (AUTO) 0.8 X 10^3 (1.0-4.0); LYMPHOCYTES % (AUTO) 13 % (12-44); MEAN CORPUSCULAR HEMOGLOBIN 28 PG (25-34); MEAN CORPUSCULAR HGB CONC 33 G/DL (32-36); MEAN CORPUSCULAR VOLUME 86 FL (80-99); MEAN PLATELET VOLUME 9.8 FL (7.4-10.4); MONOCYTES # (AUTO) 0.5 X 10^3 (0.0-1.0); MONOCYTES % (AUTO) 8 % (0-12); NEUTROPHILS # (AUTO) 4.7 X 10^3 (1.8-7.8); NEUTROPHILS % (AUTO) 79 % (42-75); PLATELET COUNT 221 10^3/uL (130-400); RED BLOOD COUNT 3.27 10^6/uL (4.35-5.85); RED CELL DISTRIBUTION WIDTH 13.2 % (10.0-14.5)
[2016-05-09 11:44] LABS: ALANINE AMINOTRANSFERASE 7 U/L (0-55); ANION GAP 11 MMOL/L (5-14); ASPARTATE AMINO TRANSFERASE 9 U/L (5-34); BILIRUBIN,TOTAL 0.2 MG/DL (0.1-1.0); BLOOD UREA NITROGEN 4 MG/DL (7-18); BUN/CREATININE RATIO 7; CALCIUM 7.9 MG/DL (8.5-10.1); CARBON DIOXIDE 23 MMOL/L (21-32); CHLORIDE 107 MMOL/L (98-107); CREATININE SERUM 0.54 MG/DL (0.60-1.30); GFR ESTIMATED > 60; GLUCOSE 105 MG/DL (70-105); LACTATE DEHYDROGENASE 168 U/L (125-220); SODIUM 141 MMOL/L (135-145); TOTAL PROTEIN 5.2 G/DL (6.4-8.2); URIC ACID 4.1 MG/DL (2.6-7.2)
[2016-05-09 11:45] LABS: POTASSIUM 2.5 MMOL/L (3.6-5.0)
[2016-05-09] MEDS ORDERED: diphenhydrAMINE 25 MG TAB (BENADRYL) PO NR (11:45)
[2016-05-09] MEDS ORDERED: MAGNESIUM OXIDE (MAG-OX)400 MG TAB PO NR (11:45)
[2016-05-09] MEDS ORDERED: D5 LR IV SOLUTION 1,000 ML IV ONE (12:04)
--- NOTE | 2016-05-09 12:23 | History & Physical-OB ---
OB - Chief Complaint & HPI Date Date of Admission: Date of Admission: Chief Complaint/History OB-Reason for Admission/Chief: Hx : 4 Hx Para: 3 Expected Date of Delivery: May 17, 2016 Gestational Age in Weeks: 34 Gestational Age in Days: 3 Other reason for admission: 35 y/o @ 34w3d patient of Dr. Villalobos here for headache, elevated BP. Pt was observed Saturday/Saturday by Dr. Fraire for the same issue. Had a few severe range BPs at that time but normalized thereafter and h/a improved after phenergan so was sent home. Today, reports h/a on and off since Saturday. Currently is on left side of head and posterior. No severe RUQ pain. Does note some increase in edema. Has been taking ASA 81 mg daily for pre-eclampsia risk reduction. Had had several elevated BPds in (at 11 wga, was 128/90, at 19 wga was 144/84). Is on methyldopa which was just increased by Dr. Fraire yesterday before discharge. Also received BTMZ on that admission. She reports to RN that she has been told she is high risk for pre-eclampsia and will likely deliver early and is nervous about this. Fetus is active, no LOF VB. Feels occasional CTX in her back but these are not painful. History of Labs O+ Antibody neg RI Hep B neg HIV neg RPR NR Pap normal GC/CT neg/neg 1 hr GTT 162, 3 hr 85/199/145/80 Allergies and Home Medications Allergies Coded Allergies: No Known Drug Allergies (Unverified , 12/24/10) Home Medications Aspirin 81 Mg Tab.chew, 81 MG PO DAILY, (Reported) Methyldopa 500 Mg Tablet, 500 MG PO TID, (Reported) Vit W-Ca,Fe,FA(<1 mg) 1 Each Tablet, 1 EACH PO DAILY, (Reported) OB - History Hx of Present Ultrasounds: Other (had ultrasound on Saturday (bpp 09/25) per record ) Obstetrical Complications: Gestational Diabetes (per Dr. Villalobos's record) Medical Complications: Other (chronic HTN) Obstetrical History Hx : 4 Hx Para: 3 Delivery History Hx Section: Yes Patient Past Medical History cHTN as above Social History/Family History HIV/AIDS: No Immunizations Date of Influenza Vaccine: Mar 09, 2016 OB - Admission Exam Physical Exam Vitals: vitals per RN record - all mild range BPs, no severe range HEENT: NCAT Heart: Rhythm Normal Abdomen: Gravid Extremities: Edema (1-2+ pitting edema to knee) Reflexes: Normal Heart Rate: 130's Accelerations: Accelerations Present Decelerations: No Decelerations Short Term Variability: Present Shelter Variability: Average (6-25) Contractions on Admission: 6-10 Minutes Apart Intensity: Mild Labs Laboratory Tests Test 05/09/16 11:15 Range/Units White Blood Count 6.0 4.3-11.0 10^3/uL Red Blood Count 3.27 L 4.35-5.85 10^6/uL Hemoglobin 9.3 L 11.5-16.0 G/DL Hematocrit 28 L 35-52 % Mean Corpuscular Volume 86 80-99 FL Mean Corpuscular Hemoglobin 28 25-34 PG Mean Corpuscular Hemoglobin Concent 33 32-36 G/DL Red Cell Distribution Width 13.2 10.0-14.5 % Platelet Count 221 130-400 10^3/uL Mean Platelet Volume 9.8 7.4-10.4 FL Neutrophils (%) (Auto) 79 H 42-75 % Lymphocytes (%) (Auto) 13 12-44 % Monocytes (%) (Auto) 8 0-12 % Eosinophils (%) (Auto) 0 0-10 % Basophils (%) (Auto) 0 0-10 % Neutrophils # (Auto) 4.7 1.8-7.8 X 10^3 Lymphocytes # (Auto) 0.8 L 1.0-4.0 X 10^3 Monocytes # (Auto) 0.5 0.0-1.0 X 10^3 Eosinophils # (Auto) 0.0 0.0-0.3 10^3/uL Basophils # (Auto) 0.0 0.0-0.1 10^3/uL Sodium Level 141 135-145 MMOL/L Potassium Level 2.5 *L 3.6-5.0 MMOL/L Chloride Level 107 98-107 MMOL/L Carbon Dioxide Level 23 21-32 MMOL/L Anion Gap 11 5-14 MMOL/L Blood Urea Nitrogen 4 L 7-18 MG/DL Creatinine 0.54 L 0.60-1.30 MG/DL Estimat Glomerular Filtration Rate > 60 BUN/Creatinine Ratio 7 Glucose Level 105 70-105 MG/DL Uric Acid 4.1 2.6-7.2 MG/DL Calcium Level 7.9 L 8.5-10.1 MG/DL Total Bilirubin 0.2 0.1-1.0 MG/DL Aspartate Amino Transf (AST/SGOT) 9 5-34 U/L Alanine Aminotransferase (ALT/SGPT) 7 0-55 U/L Alkaline Phosphatase 90 40-136 U/L Lactate Dehydrogenase 168 125-220 U/L Total Protein 5.2 L 6.4-8.2 G/DL Albumin 3.0 L 3.2-4.5 G/DL OB - Assessment/Plan/Diagnosis Plan Plan: Other Other Plan 35 y/o @ 34w3d with headache. Chronic HTN, BPs stable on methyldopa (500 mg TID) Previous CD x 3 AMA Class III obesity Hypokalemia S/p BTMZ 05/07-05/08 CEFM/TOCO Replace potassium (both IV and oral) Treat headache - may try fioricet if magnesium oxide and benadryl are unsuccessful. Is already scheduled Saturday for NST. If discharged, keep f/u with Dr. Villalobos. With mild range BPs and no serum evidence of super- imposed pre-eclampsia, will try to delay delivery unless intractable headache which could represent neurologic findings. Watch for signs of worsening symptoms. DEWAYNE SALES MD May 09, 2016 12:23
[2016-05-09] MEDS ORDERED: KCL 20 MEQ TAB (K-DUR) PO NR (12:45)
[2016-05-09] MEDS: POTASSIUM CL 10MEQ/50ML IVPB 50 ML IV SCH ×4 (12:51→15:50)
[2016-05-09] MEDS ORDERED: ACET/BUTAL/CAFF (FIORICET) TAB PO PRN (13:15)
--- NOTE | 2016-05-09 17:10 | Progress Note-Standard ---
Standard Progress Note Progress Notes/Assess & Plan Date Seen 05/09/16 Assess & Plan/Chief Complaint Update Note After dose of fioricet, pt reports much improvement in headache. Has eaten and had potassium replacement. VS - Last 72 Hours, by Label 05/09/16 05/09/16 05/09/16 05/09/16 09:43 10:08 10:28 10:50 Temp 98.4 Pulse 82 71 73 76 Resp 18 18 18 18 B/P (MAP) 155/74 138/76 136/74 143/74 O2 Delivery Room Air Room Air Room Air Room Air 05/09/16 05/09/16 05/09/16 05/09/16 11:08 12:38 14:35 15:05 Temp 98.1 Pulse 71 82 64 66 Resp 18 18 18 18 B/P (MAP) 147/79 143/81 149/82 137/79 O2 Delivery Room Air Room Air Room Air Room Air As above, no severe range BPs. HELLP labs unremarkable. Asked pt to keep NST as ordered previously by Dr. Fraire. Reviewed super-imposed pre-eclampsia signs and symptoms and discussed with the patient that she should present to [facility] immediately with any change in status. Will give #10 fioricet for home. Continue monitoring BP at home as well. Labs Laboratory Tests 05/09/16 11:15 DEWAYNE SALES MD May 09, 2016 17:10
[2016-05-09] MEDS ORDERED: BUTA1CAP39 PO ×2 (17:12)
[2016-05-12] MEDS ORDERED: DOCU100C37 PO (09:18)
[2016-05-12] MEDS ORDERED: FERR-74 PO (09:18)
[2016-05-12] MEDS ORDERED: LABE200T3 PO (09:18)
[2016-05-12] MEDS ORDERED: HYDR-3812 PO (09:18)
[2016-05-12] MEDS ORDERED: IBUP-1773 PO (09:18)
[2016-05-14] MEDS ORDERED: AMLO10TA4 PO (10:37)
== END 2016-05-09 17:35 | disposition home or self-care (01) ==
LOC: DELPENDDIS → WSo 09:45 → LDRP 09:45 → 3RD 12:00 → WSo 17:35
PROVIDERS: ATTEND Obstetrics & Gynecology
DX: O09.523 Supervision of elderly multigravida, third trimester (principal); O10.013 Pre-existing essential hypertension complicating pregnancy, third trimester; O34.211 Maternal care for low transverse scar from previous cesarean delivery; Z3A.34 34 weeks gestation of pregnancy; O99.213 Obesity complicating pregnancy, third trimester; E66.9 Obesity, unspecified; Z68.41 Body mass index [BMI] 40.0-44.9, adult; R51 Headache
CPT/HCPCS: 36415; 80053; 83615; 84550; 85025; 96361; 96374; 96376; 99214

== ENCOUNTER 2016-05-11 09:58 | Inpatient (IN) | payer MEDICAID ==
[2016-05-11] VITALS (16 sets, daily range): BP systolic 130–192; BP diastolic 70–97
[~2016-05-11] VITALS: Ht 154.9 cm; Wt 98.9 kg
[~2016-05-11 09:58] MED LIST changes: +BUTA1CAP39 PO
[2016-05-11 11:11] LABS: RED BLOOD COUNT 3.31 10^6/uL (4.35-5.85); RED CELL DISTRIBUTION WIDTH 13.3 % (10.0-14.5); WHITE BLOOD COUNT 5.4 10^3/uL (4.3-11.0)
[2016-05-11 11:30] LABS: ALANINE AMINOTRANSFERASE 17 U/L (0-55); ALBUMIN 3.1 G/DL (3.2-4.5); ANION GAP 14 MMOL/L (5-14); ASPARTATE AMINO TRANSFERASE 16 U/L (5-34); BILIRUBIN,TOTAL 0.3 MG/DL (0.1-1.0); BLOOD UREA NITROGEN 4 MG/DL (7-18); BUN/CREATININE RATIO 7; CARBON DIOXIDE 22 MMOL/L (21-32); CHLORIDE 105 MMOL/L (98-107); CREATININE SERUM 0.55 MG/DL (0.60-1.30); GFR ESTIMATED > 60; GLUCOSE 97 MG/DL (70-105); POTASSIUM 2.6 MMOL/L (3.6-5.0); SODIUM 141 MMOL/L (135-145); TOTAL PROTEIN 5.4 G/DL (6.4-8.2); URIC ACID 3.6 MG/DL (2.6-7.2)
[2016-05-11] MEDS ORDERED: NS IV 1000 ML 1,000 ML IV SCH (12:00)
[2016-05-11] MEDS ORDERED: NS IV 1000 ML 1,000 ML ONE (12:01)
[2016-05-11] MEDS ORDERED: POTASSIUM CL 10MEQ/50ML IVPB 50 ML IV SCH (12:18)
[2016-05-11] MEDS ORDERED: KCL 20 MEQ TAB (K-DUR) PO NR (12:18)
[2016-05-11] MEDS ORDERED: METHYLDOPA 250 MG PO SCH (12:19)
[2016-05-11] MEDS ORDERED: POTASSIUM CL 10MEQ/50ML IVPB 0 ML IV ONE (12:42)
[2016-05-11] MEDS ORDERED: MAGNESIUM 1 GM/100 ML IVPB 100 ML IV SCH (12:45)
[2016-05-11] MEDS ORDERED: KCL 20 MEQ TAB (K-DUR) PO ONE (12:45)
[2016-05-11] MEDS ORDERED: MAGNESIUM 2 GM/50 ML IVPB 50 ML IV ONE (12:51)
[2016-05-11] MEDS ORDERED: CITRIC ACID/SOB CIT (BICITRA) 30 ML UDC ONE (13:29)
[2016-05-11] MEDS ORDERED: METOCLOPRAMIDE INJ 10 MG/2 ML (REGLAN) ONE (13:29)
[2016-05-11] MEDS ORDERED: LACTATED RINGERS 1,000 ML IV PRN (13:32)
[2016-05-11] MEDS ORDERED: FAMOTIDINE 20MG/2ML IV (PEPCID) IV ONE (13:45)
[2016-05-11] MEDS ORDERED: CITRIC ACID/SOB CIT (BICITRA) 30 ML UDC PO ONE (13:45)
[2016-05-11] MEDS ORDERED: METOCLOPRAMIDE INJ 10 MG/2 ML (REGLAN) IV ONE (13:45)
[2016-05-11] MEDS ORDERED: ceFAZolin 2 GM/50 ML NS 50 ML IV ONE (13:45)
[2016-05-11] MEDS ORDERED: fentaNYL INJECTION 100 MCG/2 ML AMP ONE (13:53)
[2016-05-11] MEDS ORDERED: ONDANSETRON 4 MG/2 ML (SDV) Z0FRAN ONE (13:53)
[2016-05-11] MEDS ORDERED: OXYTOCIN/NORMAL SALINE 1,000 ML IV ONE (13:54)
--- NOTE | 2016-05-11 13:55 | History & Physical-OB ---
OB - Chief Complaint & HPI Date Date of Admission: Date of Admission: Chief Complaint/History OB-Reason for Admission/Chief: Hx : 4 Hx Para: 3 Expected Date of Delivery: Jun 17, 2016 Gestational Age in Weeks: 34 Gestational Age in Days: 5 Indication for : desires repeat Other reason for admission: this 35-year-old presented today for follow-up NST at request from previous visits this week involving severe headache associated with gestational hypertension. This patient follows with Dr. Villalobos and presented on Saturday with severe headache and blood pressures as high as 160s over 100s. At that point she was taking methyldopa 500 mg twice a day and 250 mg at lunch. After increasing her dose to 500 mg at lunch making her total dose 500 mg 3 times a day, the patient had a somewhat improved with pressure as well as labs reassuring that she was not preeclamptic, and a biophysical profile showing the fetus was not in distress. She was sent home and given betamethasone 12 mg that day and the following day. Later this week on Saturday she presented again with a similar complaint of elevated blood pressures. Preeclamptic labs were once again negative Dr. Piedra evaluated the patient at this visit and decided to continue with the and send the patient home with ongoing precautions. Today is the third day this week the patient is present with similar complaints, I redosed the patient with another 500 mg of methyldopa since her presentation without any improvement in her blood pressure readings. They have been as high as 180s over 100s, and the patient continues to have a persistent headache. Due to my concerns of hemorrhagic stroke, placental abruption, and multiple other comorbidities ectopy associated with gestational hypertension uncontrolled at this level I am recommending proceeding with delivery today, despite labs negative preeclampsia. History of Labs O pos Antibody neg RI HBsAg NR RPR NR GC neg HIV neg GBS unknown Other Laboratory Tests Test 05/11/16 10:59 Range/Units White Blood Count 5.4 4.3-11.0 10^3/uL Red Blood Count 3.31 L 4.35-5.85 10^6/uL Hemoglobin 9.5 L 11.5-16.0 G/DL Hematocrit 29 L 35-52 % Mean Corpuscular Volume 86 80-99 FL Mean Corpuscular Hemoglobin 29 25-34 PG Mean Corpuscular Hemoglobin Concent 33 32-36 G/DL Red Cell Distribution Width 13.3 10.0-14.5 % Platelet Count 191 130-400 10^3/uL Mean Platelet Volume 10.0 7.4-10.4 FL Urine Protein < 6 L 6-12 MG/DL Urine Creatinine 12 L 30-125 MG/DL Urine Protein/Creatinine Ratio Sodium Level 141 135-145 MMOL/L Potassium Level 2.6 L 3.6-5.0 MMOL/L Chloride Level 105 98-107 MMOL/L Carbon Dioxide Level 22 21-32 MMOL/L Anion Gap 14 5-14 MMOL/L Blood Urea Nitrogen 4 L 7-18 MG/DL Creatinine 0.55 L 0.60-1.30 MG/DL Estimat Glomerular Filtration Rate > 60 BUN/Creatinine Ratio 7 Glucose Level 97 70-105 MG/DL Uric Acid 3.6 2.6-7.2 MG/DL Calcium Level 8.0 L 8.5-10.1 MG/DL Magnesium Level 1.5 L 1.8-2.4 MG/DL Total Bilirubin 0.3 0.1-1.0 MG/DL Aspartate Amino Transf (AST/SGOT) 16 5-34 U/L Alanine Aminotransferase (ALT/SGPT) 17 0-55 U/L Alkaline Phosphatase 103 40-136 U/L Total Protein 5.4 L 6.4-8.2 G/DL Albumin 3.1 L 3.2-4.5 G/DL Allergies and Home Medications Allergies Coded Allergies: No Known Drug Allergies (Unverified , 12/24/10) Home Medications Aspirin 81 Mg Tab.chew, 81 MG PO DAILY, (Reported) Butalb/Acetaminophen/Caffeine 1 Each Capsule, 1 EACH PO Q8H PRN for HEADACHE, # 10 Prescribed by: DEWAYNE PIEDRA on 05/09/16 1712 Methyldopa 500 Mg Tablet, 500 MG PO TID, (Reported) Vit W-Ca,Fe,FA(<1 mg) 1 Each Tablet, 1 EACH PO DAILY, (Reported) OB - History Hx of Present Care: Yes Ultrasounds: Normal mid trimester US Obstetrical Complications: Gestational Hypertension Medical Complications: Other Other Concerns: advanced maternal age, GDM A1 diet controlled. Delivery History Hx Section: Yes Patient Past Medical History cHTN as above, patient denies chronic hypertension Social History/Family History HIV/AIDS: No Immunizations Date of Influenza Vaccine: Mar 09, 2016 OB - Admission Exam Physical Exam Vitals: Vital Signs 05/11/16 13:00 Pulse 81 Resp 18 B/P (MAP) 152/81 O2 Delivery Room Air HEENT: NCAT Heart: Rhythm Normal Lungs: Clear Abdomen: Gravid Extremities: Normal Reflexes: Normal Heart Rate: 140's Accelerations: Accelerations Present Decelerations: No Decelerations Short Term Variability: Present Alf Variability: Average (6-25) Contractions on Admission: >10 Minutes Apart Intensity: Mild Labs Laboratory Tests Test 05/11/16 10:59 Range/Units White Blood Count 5.4 4.3-11.0 10^3/uL Red Blood Count 3.31 L 4.35-5.85 10^6/uL Hemoglobin 9.5 L 11.5-16.0 G/DL Hematocrit 29 L 35-52 % Mean Corpuscular Volume 86 80-99 FL Mean Corpuscular Hemoglobin 29 25-34 PG Mean Corpuscular Hemoglobin Concent 33 32-36 G/DL Red Cell Distribution Width 13.3 10.0-14.5 % Platelet Count 191 130-400 10^3/uL Mean Platelet Volume 10.0 7.4-10.4 FL Urine Protein < 6 L 6-12 MG/DL Urine Creatinine 12 L 30-125 MG/DL Urine Protein/Creatinine Ratio Sodium Level 141 135-145 MMOL/L Potassium Level 2.6 L 3.6-5.0 MMOL/L Chloride Level 105 98-107 MMOL/L Carbon Dioxide Level 22 21-32 MMOL/L Anion Gap 14 5-14 MMOL/L Blood Urea Nitrogen 4 L 7-18 MG/DL Creatinine 0.55 L 0.60-1.30 MG/DL Estimat Glomerular Filtration Rate > 60 BUN/Creatinine Ratio 7 Glucose Level 97 70-105 MG/DL Uric Acid 3.6 2.6-7.2 MG/DL Calcium Level 8.0 L 8.5-10.1 MG/DL Magnesium Level 1.5 L 1.8-2.4 MG/DL Total Bilirubin 0.3 0.1-1.0 MG/DL Aspartate Amino Transf (AST/SGOT) 16 5-34 U/L Alanine Aminotransferase (ALT/SGPT) 17 0-55 U/L Alkaline Phosphatase 103 40-136 U/L Total Protein 5.4 L 6.4-8.2 G/DL Albumin 3.1 L 3.2-4.5 G/DL OB - Assessment/Plan/Diagnosis Assessment Assessment: section Plan Plan: Section Other Plan I discussed the patient today my concerns for stroke, placental abruption, IUGR , stillbirth, or any other comorbidities coming with uncontrolled hypertension. I discussed the patient my concern with delivery at 34 weeks and 5 days, however we do have a improved situation where the patient has received betamethasone earlier this week. She understands there is a risk with premature delivery including breathing troubles, feeding troubles, and comorbidities as well as possibility of transfer to tertiary care center. Risk of was reviewed with the patient she has underwent these before risk of bleeding, infection, damaging any of the surrounding structures including but not limited to the uterus, bowel, bladder, fetus, need for blood transition , possible hysterectomy, and even . After all of her questions were answered consent was obtained patient was taken to the operating room for urgent delivery. Discharge Diagnosis Diagnosis: 35 Yo @ 34.5 Uncontrolled Severe GHTN Headache AMA GDMA1 Obesity LINN QUISPE DO May 11, 2016 1:55 pm
[2016-05-11] MEDS ORDERED: KETAMINE HCL 100 MG/ML 5 ML VIAL ONE (14:09)
[2016-05-11] MEDS ORDERED: MIDAZOLAM 2 MG/2 ML (VERSED) VIAL ONE (14:37)
[2016-05-11] MEDS ORDERED: proPOfol 200 MG/20 ML (DIPRIVAN) VIAL IV ONE (14:43)
[2016-05-11] MEDS ORDERED: LABETALOL HCL 20 MG/4 ML VIAL ONE (15:01)
[2016-05-11] MEDS ORDERED: MEASLES,MUMPS,RUBELLA 1 EA INJ SC SCH (15:15)
[2016-05-11] MEDS ORDERED: TETANUS,DIPTH,PERTUSS P/F (BOOSTRIX) 0.5 ML VIAL IM SCH (15:15)
[2016-05-11] MEDS ORDERED: HYDROmorphone (DILAUDID) 2 MG/ML VIAL IVP PRN (15:15)
[2016-05-11] MEDS: KETOROLAC 30 MG/ML VIAL IVP SCH ×2 (15:30→21:23)
[2016-05-11] MEDS: HYDROcodone/APAP 5 MG/325 MG (LORTAB) TAB PO PRN ×2 (17:10→21:58)
[2016-05-11] MEDS: LABETALOL 200 MG (NORMODYNE) TAB PO SCH (21:23)
[2016-05-11] MEDS: DOCUSATE SODIUM 100 MG (COLACE) CAP PO SCH (21:23)
[2016-05-11] MEDS ORDERED: CATHETER FLUSH 10 ML SYR IV SCH (22:00)
[2016-05-12] MEDS: HYDROcodone/APAP 5 MG/325 MG (LORTAB) TAB PO PRN ×3 (02:08→18:47)
[2016-05-12] MEDS: KETOROLAC 30 MG/ML VIAL IVP SCH ×2 (03:25→09:29)
[2016-05-12 03:30] VITALS: BP 154/89
[2016-05-12 05:24] LABS: BASOPHILS % (AUTO) 0 % (0-10); EOSINOPHILS # (AUTO) 0.1 10^3/uL (0.0-0.3); EOSINOPHILS % (AUTO) 1 % (0-10); LYMPHOCYTES # (AUTO) 0.9 X 10^3 (1.0-4.0); LYMPHOCYTES % (AUTO) 17 % (12-44); MEAN CORPUSCULAR HEMOGLOBIN 29 PG (25-34); MEAN CORPUSCULAR HGB CONC 33 G/DL (32-36); MEAN CORPUSCULAR VOLUME 86 FL (80-99); MONOCYTES # (AUTO) 0.4 X 10^3 (0.0-1.0); MONOCYTES % (AUTO) 7 % (0-12); NEUTROPHILS # (AUTO) 4.1 X 10^3 (1.8-7.8); NEUTROPHILS % (AUTO) 75 % (42-75); PLATELET COUNT 184 10^3/uL (130-400); RED BLOOD COUNT 3.01 10^6/uL (4.35-5.85); RED CELL DISTRIBUTION WIDTH 13.3 % (10.0-14.5); WHITE BLOOD COUNT 5.5 10^3/uL (4.3-11.0)
[2016-05-12] MEDS ORDERED: HYDR-3812 PO (09:18)
[2016-05-12] MEDS ORDERED: DOCU100C37 PO (09:18)
[2016-05-12] MEDS ORDERED: FERR-74 PO (09:18)
[2016-05-12] MEDS ORDERED: LABE200T3 PO (09:18)
[2016-05-12] MEDS ORDERED: IBUP-1773 PO (09:18)
[2016-05-12 09:20] VITALS: BP 158/92
[2016-05-12] MEDS ORDERED: IBUPROFEN 600 MG (MOTRIN) TAB PO ONE (09:20)
--- NOTE | 2016-05-12 09:21 | Discharge Inst-Women's Service ---
Discharge Inst-Women's Serv Depart Medication/Instructions New, Converted or Re-Newed RX: RX on Chart Consults/Follow Up Additional Follow Up: Yes Orders/Referrals Dr. Fraire in 7-[address] Villalobos in 6 weeks Activity Activity: Activity as Tolerated Driving Instructions: No Driving for 1 Week NO SMOKING: NO SMOKING Nothing Inside Vagina: No Douching, No [place], No Tampons Diet Discharge Diet: No Restrictions Symptoms to Report to : Bleeding Excessive, Pain Increased, Fever Over 101 Degrees F, Vaginal Bleeding Increase, Questions/Concerns For Any Problems or Questions: Contact Your Physician Skin/Wound Care Infection Signs and Symptoms: Increased Redness, Foul Odor of Wound, Increased Drainage, Skin Itchy or Has a Rash, Increased Swelling, Temperature Above 101 F Operative Area Clean and Dry: Keep Incision Clean/Dry Stitches/Obie/Dermabond: Care of Obei Bathing Instructions: LINN Medrano DO May 12, 2016 9:21 am
--- NOTE | 2016-05-12 09:24 | Progress Note-Standard ---
Standard Progress Note Progress Notes/Assess & Plan Progress/Assessment & Plan Patient doing well POD 1 RLTCS. Reports headache was gone once she was in recovery and has been feeling well ever since. Reports good pain control. minimal lochia, ambulating and voiding freely. Vital Sign - Last 24 Hours 05/11/16 05/11/16 05/11/16 05/11/16 10:00 10:30 10:37 10:48 Pulse 88 86 88 78 Resp 18 18 18 18 B/P (MAP) 171/85 192/93 166/89 143/74 O2 Delivery Room Air Room Air Room Air Room Air 05/11/16 05/11/16 05/11/16 05/11/16 10:48 10:59 11:29 12:54 Pulse 80 83 79 86 Resp 18 18 18 18 B/P (MAP) 186/91 134/73 162/77 171/89 O2 Delivery Room Air Room Air Room Air 05/11/16 05/11/16 05/11/16 05/11/16 13:00 13:15 13:45 15:15 Temp 97.3 97.4 Pulse 81 75 100 75 Resp 18 18 17 B/P (MAP) 152/81 133/78 175/97 130/70 Pulse Ox 95 O2 Delivery Room Air Room Air Room Air Room Air 05/11/16 05/11/16 05/11/16 05/11/16 15:30 15:45 16:00 19:55 Temp 97.4 97.8 98.0 98.0 Pulse 72 74 72 86 Resp 15 15 16 18 B/P (MAP) 136/73 140/83 143/75 136/84 Pulse Ox 92 93 95 O2 Delivery Room Air Room Air Room Air Room Air 05/11/16 05/12/16 23:30 03:30 Temp 96.4 97.3 Pulse 70 70 Resp 18 16 B/P (MAP) 141/86 154/89 O2 Delivery Room Air Room Air Intake and Output 05/11/16 05/11/16 05/12/16 15:00 23:00 07:00 Intake Total 387 ml 1240 ml 780 ml Output Total 825 ml 1000 ml Balance 387 ml 415 ml -220 ml Laboratory Tests Test 05/11/16 10:59 05/12/16 05:15 Range/Units White Blood Count 5.4 5.5 4.3-11.0 10^3/uL Red Blood Count 3.31 L 3.01 L 4.35-5.85 10^6/uL Hemoglobin 9.5 L 8.6 L 11.5-16.0 G/DL Hematocrit 29 L 26 L 35-52 % Mean Corpuscular Volume 86 86 80-99 FL Mean Corpuscular Hemoglobin 29 29 25-34 PG Mean Corpuscular Hemoglobin Concent 33 33 32-36 G/DL Red Cell Distribution Width 13.3 13.3 10.0-14.5 % Platelet Count 191 184 130-400 10^3/uL Mean Platelet Volume 10.0 10.0 7.4-10.4 FL Urine Protein < 6 L 6-12 MG/DL Urine Creatinine 12 L 30-125 MG/DL Urine Protein/Creatinine Ratio Sodium Level 141 135-145 MMOL/L Potassium Level 2.6 L 3.6-5.0 MMOL/L Chloride Level 105 98-107 MMOL/L Carbon Dioxide Level 22 21-32 MMOL/L Anion Gap 14 5-14 MMOL/L Blood Urea Nitrogen 4 L 7-18 MG/DL Creatinine 0.55 L 0.60-1.30 MG/DL Estimat Glomerular Filtration Rate > 60 BUN/Creatinine Ratio 7 Glucose Level 97 70-105 MG/DL Uric Acid 3.6 2.6-7.2 MG/DL Calcium Level 8.0 L 8.5-10.1 MG/DL Magnesium Level 1.5 L 1.8-2.4 MG/DL Total Bilirubin 0.3 0.1-1.0 MG/DL Aspartate Amino Transf (AST/SGOT) 16 5-34 U/L Alanine Aminotransferase (ALT/SGPT) 17 0-55 U/L Alkaline Phosphatase 103 40-136 U/L Total Protein 5.4 L 6.4-8.2 G/DL Albumin 3.1 L 3.2-4.5 G/DL Neutrophils (%) (Auto) 75 42-75 % Lymphocytes (%) (Auto) 17 12-44 % Monocytes (%) (Auto) 7 0-12 % Eosinophils (%) (Auto) 1 0-10 % Basophils (%) (Auto) 0 0-10 % Neutrophils # (Auto) 4.1 1.8-7.8 X 10^3 Lymphocytes # (Auto) 0.9 L 1.0-4.0 X 10^3 Monocytes # (Auto) 0.4 0.0-1.0 X 10^3 Eosinophils # (Auto) 0.1 0.0-0.3 10^3/uL Basophils # (Auto) 0.0 0.0-0.1 10^3/uL Incision: c/d/i Diagnosis: POD 1 RLTCS Severe GHTN, probably superimposed on chronic Acute blood loss anemia superimposed on anemia of AMA Obesity Plan: Patient started on Labetalol yesterday with fairly good control noted Continue routine PO care Iron supplement LINN QUISPE DO May 12, 2016 9:24 am
[2016-05-12] MEDS: LABETALOL 200 MG (NORMODYNE) TAB PO SCH ×3 (09:26→21:18)
[2016-05-12] MEDS: DOCUSATE SODIUM 100 MG (COLACE) CAP PO SCH ×2 (09:29→21:18)
[2016-05-12 09:54] LABS: MAGNESIUM 1.4 MG/DL (1.8-2.4); POTASSIUM 2.8 MMOL/L (3.6-5.0)
--- NOTE | 2016-05-12 10:47 | OPERATIVE REPORT ---
PROCEDURE PHYSICIAN: JESSE QUISPE DATE OF PROCEDURE: 05/11/2016 PREOPERATIVE DIAGNOSIS: 1. 35-year-old G4, P3 at 34 weeks and 5 days gestation. 2. Severe gestational hypertension, uncontrolled. 3. Obesity. 4. Advanced maternal age. 5. Previous section. POSTOPERATIVE DIAGNOSIS: 1. 35-year-old G4, P3 at 34 weeks and 5 days gestation. 2. Severe gestational hypertension, uncontrolled. 3. Obesity. 4. Advanced maternal age. 5. Previous section. PROCEDURE: Repeat low transverse section. SURGEON: Dr. Jesse Quispe ANESTHESIA: Spinal ESTIMATED BLOOD LOSS: 400 mL URINE OUTPUT: 75 mL, clear at the end of the procedure FLUIDS: 1800 mL of lactated ringer solution as well as 10 milligram Labetalol given intraoperatively for hypertensive episode SPECIMEN SENT: Placenta INDICATIONS FOR THE PROCEDURE: Please see my preoperative H&P for complete details pertaining to patient's presentation for , as well as discussion about operative risks. OPERATIVE REPORT IN DETAIL: The patient was taken to the operating room, where spinal analgesia was found to be adequate. She was placed in the supine position with a leftward tilt, prepped and draped in a normal sterile fashion. A timeout was performed and anesthesia is tested. A Pfannenstiel skin incision was made through previously existing scar using a knife and carried down to the underlying fascia using Bovie cautery. The fascial incision is extended laterally using Bovie cautery. Superior aspect of the fascial incision was then grasped with Cindy clamps, tented upward and dissected off the underlying rectus muscles. The inferior aspect of the fascial incision was then grasped with Cindy clamps, tented upward and dissected off the underlying rectus muscles. The rectus muscles were then dissected down the midline using Goodson scissors which exposed the peritoneum which is entered bluntly and extended using blunt traction. An Errol ring retractor was placed within the peritoneal incision which offers excellent lateral sidewall retraction. I identify the lower uterine segment and make a low transverse incision through the serosa of the uterus using a knife and bluntly dissect the bladder off of the uterus. My myotomy is continued until I visualize membranes. The 's head is elevated up to the incision were it is delivered and the nares and oropharynx are bulb suctioned. The anterior posterior shoulders are delivered and infant is then brought onto the operative field where the cord is dually clamped and cut and infant handed off to the awaiting pediatric team. Cord blood was collected for analysis. Three vessel cord was intact and the placenta is delivered spontaneously thereafter. IV Pitocin is initiated to facilitate uterine contractions. The uterine fundus becomes firm with bimanual massage. The uterus is then exteriorized and cleared of all endometrial, clots and debris. The uterine incision was then closed using 0 Vicryl suture in a running lock fashion. A second layer of imbricating 0 Monocryl is placed. Excellent hemostasis is noted after doing so. The uterus is then placed back within the pelvis and the pelvis copiously irrigated using normal saline. Intercede is placed over the low transverse incision. I then proceed with closing the peritoneum using 3-0 Vicryl suture in a running fashion. The rectus muscles are reapproximated 3-0 Vicryl suture in an interrupted fashion. The fascia reapproximated using 0 Vicryl suture in a running fashion. The subcutaneous tissues reapproximated using 3-0 plain in an interrupted subcutaneous stitch and the skin reapproximated using julia. The patient tolerated the procedure well and was taken to the recovery area in stable condition. Lap and sponge counts were correct end of procedure. Instrument counts correct as well. 2 grams of Ancef given preoperatively for infection prophylaxis. Job ID: [id number] Dictated Date: 05/11/2016 15:19:19 Soft Boarder Date: 05/12/2016 10:23:51 / amber HOOPER
--- NOTE | 2016-05-12 11:14 | Anesthesia-Regional Post-Op ---
Regional Patient Condition Mental Status: Alert, Oriented x3 Circulation: Same as Pre-Op Headache: Absent Sensation: Full Recovery Motor Block: Absent Post Op Complications Complications None Follow Up Care/Instructions Patient Instructions None needed. Anesthesia/Patient Condition Patient is doing well, no complaints, stable vital signs, no apparent adverse anesthesia problems. No complications reported per nursing. CESAR PADILLA CRNA May 12, 2016 11:14
[2016-05-12] MEDS ORDERED: NS IV 1000 ML 1,000 ML IV SCH (11:45)
[2016-05-12] MEDS ORDERED: MAGNESIUM 4 GM/100 ML IVPB 100 ML IV NR (11:45)
[2016-05-12 14:55] VITALS: BP 134/77
[2016-05-12] MEDS: KCL 20 MEQ TAB (K-DUR) PO SCH (14:59)
[2016-05-12] MEDS: IBUPROFEN 600 MG (MOTRIN) TAB PO SCH ×2 (15:59→21:21)
[2016-05-12 21:15] VITALS: BP 159/85
[2016-05-13] MEDS: HYDROcodone/APAP 5 MG/325 MG (LORTAB) TAB PO PRN ×2 (03:11→22:21)
[2016-05-13 03:15] VITALS: BP 151/86
[2016-05-13] MEDS: IBUPROFEN 600 MG (MOTRIN) TAB PO SCH ×4 (03:52→22:21)
[2016-05-13 08:40] VITALS: BP 162/87
[2016-05-13] MEDS: LABETALOL 200 MG (NORMODYNE) TAB PO SCH ×3 (08:47→21:13)
[2016-05-13] MEDS: DOCUSATE SODIUM 100 MG (COLACE) CAP PO SCH (08:47)
[2016-05-13] MEDS: FERROUS SULF 325 MG (IRON) TAB PO SCH (08:48)
[2016-05-13 10:17] VITALS: BP 153/84
[2016-05-13] MEDS ORDERED: FUROSEMIDE 20 MG (LASIX) TAB PO NR (10:30)
--- NOTE | 2016-05-13 10:41 | Progress Note-Standard ---
Standard Progress Note Progress Notes/Assess & Plan Progress/Assessment & Plan Patient doing well POD 2 RLTCS. Reports headache was gone once she was in recovery and has been feeling well ever since. Reports good pain control. minimal lochia, ambulating and voiding freely. Vital Signs 05/13/16 05/13/16 08:40 10:17 Temp 98.0 Pulse 71 Resp 18 B/P (MAP) 153/84 Pulse Ox 97 O2 Delivery Room Air Incision: c/d/i Diagnosis: POD 2 RLTCS Severe GHTN, probably superimposed on chronic- improved control, no further headaches since Acute blood loss anemia superimposed on anemia of AMA Obesity Plan: Patient continued on Labetalol, significant LE edema, giving one dose of lasix today Continue routine PO care Iron supplement LINN QUISPE DO May 13, 2016 10:41
[2016-05-13 10:54] LABS: MAGNESIUM 1.6 MG/DL (1.8-2.4)
[2016-05-13] MEDS: KCL 20 MEQ TAB (K-DUR) PO SCH (13:08)
[2016-05-13 15:50] VITALS: BP 145/77
[2016-05-13 21:12] VITALS: BP 163/83
[2016-05-13 22:20] VITALS: BP 164/84
[2016-05-14 04:00] VITALS: BP 167/80
[2016-05-14] MEDS: IBUPROFEN 600 MG (MOTRIN) TAB PO SCH ×3 (04:15→15:15)
[2016-05-14] MEDS: FERROUS SULF 325 MG (IRON) TAB PO SCH (08:01)
[2016-05-14] MEDS: DOCUSATE SODIUM 100 MG (COLACE) CAP PO SCH (08:02)
[2016-05-14] MEDS: amLODIPine 5 MG (NORVASC) TAB PO SCH ×2 (08:02→10:20)
[2016-05-14 08:12] VITALS: BP 177/96
[2016-05-14 09:16] VITALS: BP 165/89
[2016-05-14] MEDS ORDERED: amLODIPine 5 MG (NORVASC) TAB PO ONE (10:15)
--- NOTE | 2016-05-14 10:36 | Progress Note-Standard ---
Standard Progress Note Progress Notes/Assess & Plan Progress/Assessment & Plan Patient doing well POD 3 RLTCS. Reports no signs/sx of preE. Reports good pain control. minimal lochia, ambulating and voiding freely. Vital Sign - Last 24 Hours 05/13/16 05/13/16 05/13/16 05/14/16 15:50 21:12 22:20 04:00 Temp 98.0 98.1 98.4 97.2 Pulse 66 70 77 66 Resp 18 18 18 18 B/P (MAP) 145/77 163/83 164/84 167/80 Pulse Ox 97 98 98 97 O2 Delivery Room Air Room Air Room Air Room Air 05/14/16 05/14/16 08:12 09:16 Temp 97.3 Pulse 64 Resp 18 B/P (MAP) 177/96 165/89 Pulse Ox 96 O2 Delivery Room Air Intake and Output 05/13/16 05/13/16 05/14/16 15:00 23:00 07:00 Intake Total 550 ml Output Total 1100 ml Balance -550 ml Incision: c/d/i Diagnosis: POD 3 RLTCS Severe GHTN, probably superimposed on chronic- control is limited on Labetalol switching to Norvasc today Acute blood loss anemia superimposed on anemia of AMA Obesity Plan: Patient started on 10 of Norvasc if control, noted will dc later today Continue routine PO care Iron supplement DC later today. LINN QUISPE DO May 14, 2016 10:36 am
[2016-05-14] MEDS ORDERED: AMLO10TA4 PO (10:37)
[2016-05-14] MEDS: KCL 20 MEQ TAB (K-DUR) PO SCH (12:10)
[2016-05-15] MEDS ORDERED: amLODIPine 10 MG (NORVASC) TAB PO SCH (09:00)
--- NOTE | 2016-05-24 13:38 | DISCHARGE SUMMARY ---
DATE OF ADMISSION: 05/11/2016 ADMISSION DIAGNOSIS: 1. 35-year-old G4, P3, at 34 weeks and 5 days gestation. 2. Uncontrolled severe gestational hypertension. 3. Headache. 4. Advanced maternal age. 5. GDM A1. 6. Obesity. DATE OF DISCHARGE: 05/14/2016 DISCHARGE DIAGNOSIS: 1. 35-year-old G4, P3, at 34 weeks and 5 days gestation. 2. Uncontrolled severe gestational hypertension. 3. Headache. 4. Advanced maternal age. 5. GDM A1. 6. Obesity. 7. Postop day 3 repeat low transverse section. 8. Acute blood loss anemia superimposed on anemia of . SERVICE: [facility] ATTENDING PHYSICIAN: Dr. Jesse Fraire. HOSPITAL COURSE: Hospital course is as follows: Please see admission H\T\P from 05/11/2016 for complete details, pertaining to patient's admission presentation and plan of care and physical examination at the time of admission. Please see operative report for complete details dictated on 05/12/2016 for complete details, pertaining to patient's indications for procedure as well as the procedure itself in detail. Postoperative course for this patient was fairly routine with exception of dealing with the patient's anemia and blood pressure concerns. On postop day one, the patient was doing very well reported that her headache was gone that she presented with and has been feeling very well since in the postoperative phase of her care. Her vital signs remained stable with the exception of blood pressures that were still elevated into the 150s to 160s/80s to 90s. Her postoperative hemoglobin was found to be 8.6 and she was started on ferrous sulfate supplementation. Due to ongoing issues with blood pressure control I started the patient on labetalol on postop day 2. I gave her a dose of Lasix due to significant amount of lower extremity edema which did improve the swelling in the lower extremities. Her blood pressure on that day was found to be 150s/80s. However had significant spikes throughout the night. I then decided to switch the patient to Norvasc. Once on Norvasc 10 mg her highest blood pressure was 167/80. The remainder of her vital signs remained stable. On postop day 3, incision was clean, dry, and intact and she was doing very well ambulating, voiding freely, pain was well controlled. Due to patient's clinical stability on postop day 3 it was decided to send the patient home. She was given routine postoperative and precautions and told to return to care if any of these things should occur. She was also given preeclampsia, precautions as well as precautions for taking antiadhesive hypertensive medications. All of her questions were answered pertaining to these precautions as well. She was sent home on the following medications including Norvasc 10 mg 1 p.o. daily, number 60. Colace 100 mg 1 p.o. b.i.d. p.r.n. as needed for constipation, number 40. Ferrous sulfate 325 mg daily, number 60. [place] 5/325, 1 p.o. q.4-6 hours p.r.n. as needed for pain, number 50. Motrin 600 mg 1 p.o. q.6 hours p.r.n. as needed for pain, number 80. She told to continue her aspirin, Fioricet as needed and her vitamin. Her Methyldopa was discontinued at that point due to its being ineffective in her blood pressure management. She had no questions at time of discharge as far as management of her medications and told to keep a follow-up in my office in 7 to 10 days to evaluate incision and postoperative blood pressure check. Job ID: [id number] Dictated Date: 05/24/2016 10:07:12 Drafter Structural Date: 05/24/2016 13:28:25/amber
== END 2016-05-14 15:15 | disposition home or self-care (01) | DRG 765 ==
LOC: DELPENDDIS → WSo 09:58 → LDRP 09:58 → EDSTATUS 14:27 → LDRP 16:20
PROVIDERS: ADMIT Obstetrics & Gynecology; ATTEND Obstetrics & Gynecology
PROC: 3E0P05Z Introduction of Adhesion Barrier into Female Reproductive, Open Approach (ICD-10-PCS; 2016-05-11)
PROC: 10D00Z1 Extraction of Products of Conception, Low, Open Approach (ICD-10-PCS; principal; 2016-05-11 14:00)
DX: O13.4 Gestational [pregnancy-induced] hypertension without significant proteinuria, complicating childbirth (principal); O24.420 Gestational diabetes mellitus in childbirth, diet controlled; O99.214 Obesity complicating childbirth; E66.9 Obesity, unspecified; D62 Acute posthemorrhagic anemia; R51 Headache; Z3A.34 34 weeks gestation of pregnancy; Z37.0 Single live birth; O99.03 Anemia complicating the puerperium; O34.211 Maternal care for low transverse scar from previous cesarean delivery; O99.283 Endocrine, nutritional and metabolic diseases complicating pregnancy, third trimester; E87.6 Hypokalemia; E83.42 Hypomagnesemia; Z23 Encounter for immunization
CPT/HCPCS: 36415; 80053; 82570; 83735; 84132; 84156; 84550; 85025; 85027; 86850; 86900; 86901; 88307; 90715; 94664

== ENCOUNTER 2017-10-01 15:53 | Outpatient (CLI) | payer MEDICAID ==
[2017-10-01] MEDS ORDERED: BETAMETHASONE ACE/NA PHOS 6 MG/ML (CELESTONE SOLUSPAN) ONE (16:09)
[2017-10-01] MEDS ORDERED: BETAMETHASONE ACE/NA PHOS 6 MG/ML (CELESTONE SOLUSPAN) IM SCH (16:15)
[2017-10-02] MEDS ORDERED: BETAMETHASONE ACE/NA PHOS 6 MG/ML (CELESTONE SOLUSPAN) IM SCH (09:00)
== END 2017-10-01 16:17 | disposition home or self-care (01) ==
LOC: WSo 15:53
PROVIDERS: ATTEND Obstetrics & Gynecology
DX: Z87.51 Personal history of pre-term labor (principal)
CPT/HCPCS: 96372

== ENCOUNTER → 2017-10-01 | Outpatient (CLI) | payer MEDICAID ==
[~2017-10-01] MED LIST changes: +ACHD5005 PO; +AMLO10TA4 PO; +DOCU100C37 PO; +FERR325T18 PO; +IBUP-1773 PO; +LABE200T7 PO; -METH250T PO; +METH250T5 PO; -METH500T2 PO; +METH500T23 PO
== END ==
LOC: LABNPT 15:38
PROVIDERS: ATTEND Obstetrics & Gynecology
DX: O14.03 Mild to moderate pre-eclampsia, third trimester (principal)
CPT/HCPCS: 82570; 84156

== ENCOUNTER 2017-10-02 16:36 | Outpatient (CLI) | payer MEDICAID ==
[2017-10-02] MEDS ORDERED: BETAMETHASONE ACE/NA PHOS 6 MG/ML (CELESTONE SOLUSPAN) IM ONE (16:45)
[2017-10-02] MEDS ORDERED: BETAMETHASONE ACE/NA PHOS 6 MG/ML (CELESTONE SOLUSPAN) ONE (16:45)
== END 2017-10-02 16:54 | disposition home or self-care (01) ==
LOC: WSo 16:36
PROVIDERS: ATTEND Obstetrics & Gynecology
DX: O09.219 Supervision of pregnancy with history of pre-term labor, unspecified trimester (principal)
CPT/HCPCS: 96372

== ENCOUNTER 2017-10-04 09:40 | Inpatient (IN) | payer MEDICAID ==
[~2017-10-04] VITALS: Ht 154.9 cm; Wt 100.3 kg
[2017-10-04] VITALS (10 sets, daily range): BP systolic 130–182; BP diastolic 70–101
[2017-10-04 10:28] LABS: BASOPHILS % (AUTO) 0 % (0-10); EOSINOPHILS # (AUTO) 0.1 10^3/uL (0.0-0.3); EOSINOPHILS % (AUTO) 1 % (0-10); HEMATOCRIT 26 % (35-52); HEMOGLOBIN 8.3 G/DL (11.5-16.0); LYMPHOCYTES # (AUTO) 1.3 X 10^3 (1.0-4.0); LYMPHOCYTES % (AUTO) 21 % (12-44); MEAN CORPUSCULAR HEMOGLOBIN 26 PG (25-34); MEAN CORPUSCULAR HGB CONC 32 G/DL (32-36); MEAN CORPUSCULAR VOLUME 81 FL (80-99); MEAN PLATELET VOLUME 10.2 FL (7.4-10.4); MONOCYTES # (AUTO) 0.5 X 10^3 (0.0-1.0); MONOCYTES % (AUTO) 9 % (0-12); NEUTROPHILS # (AUTO) 4.2 X 10^3 (1.8-7.8); NEUTROPHILS % (AUTO) 69 % (42-75); PLATELET COUNT 208 10^3/uL (130-400); RED CELL DISTRIBUTION WIDTH 16.3 % (10.0-14.5)
[2017-10-04 10:44] LABS: ALANINE AMINOTRANSFERASE 27 U/L (0-55); ALBUMIN 3.3 GM/DL (3.2-4.5); ALKALINE PHOSPHATASE 83 U/L (40-136); BILIRUBIN,TOTAL 0.4 MG/DL (0.1-1.0); BUN/CREATININE RATIO 13; CALCIUM 8.1 MG/DL (8.5-10.1); CARBON DIOXIDE 25 MMOL/L (21-32); CHLORIDE 104 MMOL/L (98-107); CREATININE SERUM 0.52 MG/DL (0.60-1.30); GFR ESTIMATED > 60; GLUCOSE 99 MG/DL (70-105); SODIUM 139 MMOL/L (135-145); TOTAL PROTEIN 5.6 GM/DL (6.4-8.2); URIC ACID 3.8 MG/DL (2.6-7.2)
[2017-10-04 10:49] LABS: POTASSIUM 2.5 MMOL/L (3.6-5.0)
[2017-10-04] MEDS ORDERED: D5 LR IV SOLUTION 1,000 ML IV ONE (10:52)
[2017-10-04 10:59] LABS: BILIRUBIN,URINE NEGATIVE (NEGATIVE); CLARITY,URINE CLEAR; COLOR,URINE YELLOW; GLUCOSE, URINE (UA) NEGATIVE (NEGATIVE); KETONES,URINE NEGATIVE (NEGATIVE); LEUKOCYTE ESTERASE ,URINE NEGATIVE (NEGATIVE); NITRITE,URINE NEGATIVE (NEGATIVE); PH,URINE 7 (5-9); PROTEIN,URINE NEGATIVE (NEGATIVE); UROBILINOGEN,URINE 4 MG/DL (NORMAL)
[2017-10-04] MEDS ORDERED: D5 LR IV SOLUTION 1,000 ML IV SCH (11:00)
[2017-10-04 11:08] LABS: BACTERIA,URINE TRACE /HPF; WBC,URINE RARE /HPF
[2017-10-04] MEDS ORDERED: POTA25TA7 PO (11:13)
[2017-10-04] MEDS ORDERED: Aldomet PO (11:13)
[2017-10-04] MEDS ORDERED: OMEP20TA33 PO (11:13)
[2017-10-04] MEDS ORDERED: hydrALAZINE (APESOLINE) 20 MG/ML VIAL ONE (13:30)
[2017-10-04] MEDS ORDERED: hydrALAZINE (APESOLINE) 20 MG/ML VIAL IV ONE (13:45)
[2017-10-04] MEDS ORDERED: MAGNESIUM 4 GM/100 ML IVPB 100 ML IV ONE ×2 (14:04→14:30)
--- NOTE | 2017-10-04 14:15 | History & Physical ---
History and Physical Date Seen by Provider: Oct 04, 2017 Time Seen by Provider: 14:07 This serves as my admit H&P and my discharge summary. This patient is a 36-year-old white female with an EDC of 10 315 putting her at 33-2/7 weeks' gestation. has been complicated by her pre- existing hypertension. She has been adequately controlled on Aldomet with blood pressures running in the 140s 150s over 80s and occasionally 90s. this patient was sent directly from my office to OB for admission. Admission her blood pressures improved to the 150s over 90s. However blood pressures now at bed rest are in the 160s to 170s. She had been given a dose of hydralazine and brought the pressures down only to the 160s over 100 100s. Lab work was obtained her liver enzymes LFTs are normal her LDH is normal her platelets are normal. Her urine protein creatinine ratio is 0.29. She reports feeling not quite right. She is having occasional contractions the monitor shows a normal heart rate In anticipation of her likely progression with severe preeclampsia at 33 weeks gestation I had discussed this case with Dr. Hernandez at [facility] who agreed to take the patient in transfer. Be transferred to [facility] for management primarily for the availability of NICU for 33-2/7 weeks gestation. Allergies are none Medications are vitamins and Aldomet taking 1000 in the morning 591, 000 mg in the evening she also takes Prilosec Medical social and surgical histories are per the antepartum record HEENT exam is normal Chest is clear auscultation bilaterally Heart has a regular rhythm with no murmurs Neck supple no lymphadenopathy and no thyromegaly Abdomen is gravid soft nontender nondistended Extremities show no clubbing cyanosis. There is fairly notable pretibial pitting edema that is increasing over the last few days. Pelvic exam is deferred. Laboratory Tests Test 10/04/17 09:50 10/04/17 10:00 Range/Units Urine Color YELLOW Urine Clarity CLEAR Urine pH 7 5-9 Urine Specific [place] 1.010 L 1.016-1.022 Urine Protein NEGATIVE NEGATIVE Urine Glucose (UA) NEGATIVE NEGATIVE Urine Ketones NEGATIVE NEGATIVE Urine Nitrite NEGATIVE NEGATIVE Urine Bilirubin NEGATIVE NEGATIVE Urine Urobilinogen 4 H NORMAL MG/DL Urine Leukocyte Esterase NEGATIVE NEGATIVE Urine RBC (Auto) NEGATIVE NEGATIVE Urine RBC NONE /HPF Urine WBC RARE /HPF Urine Squamous Epithelial Cells 5-10 /HPF Urine Crystals NONE /LPF Urine Bacteria TRACE /HPF Urine Casts NONE /LPF Urine Mucus NEGATIVE /LPF Urine Culture Indicated NO Urine Creatinine 59 30-125 MG/DL Urine Protein/Creatinine Ratio 0.29 White Blood Count 6.0 4.3-11.0 10^3/uL Red Blood Count 3.20 L 4.35-5.85 10^6/uL Hemoglobin 8.3 L 11.5-16.0 G/DL Hematocrit 26 L 35-52 % Mean Corpuscular Volume 81 80-99 FL Mean Corpuscular Hemoglobin 26 25-34 PG Mean Corpuscular Hemoglobin Concent 32 32-36 G/DL Red Cell Distribution Width 16.3 H 10.0-14.5 % Platelet Count 208 130-400 10^3/uL Mean Platelet Volume 10.2 7.4-10.4 FL Neutrophils (%) (Auto) 69 42-75 % Lymphocytes (%) (Auto) 21 12-44 % Monocytes (%) (Auto) 9 0-12 % Eosinophils (%) (Auto) 1 0-10 % Basophils (%) (Auto) 0 0-10 % Neutrophils # (Auto) 4.2 1.8-7.8 X 10^3 Lymphocytes # (Auto) 1.3 1.0-4.0 X 10^3 Monocytes # (Auto) 0.5 0.0-1.0 X 10^3 Eosinophils # (Auto) 0.1 0.0-0.3 10^3/uL Basophils # (Auto) 0.0 0.0-0.1 10^3/uL Sodium Level 139 135-145 MMOL/L Potassium Level 2.5 *L 3.6-5.0 MMOL/L Chloride Level 104 98-107 MMOL/L Carbon Dioxide Level 25 21-32 MMOL/L Anion Gap 10 5-14 MMOL/L Blood Urea Nitrogen 7 7-18 MG/DL Creatinine 0.52 L 0.60-1.30 MG/DL Estimat Glomerular Filtration Rate > 60 BUN/Creatinine Ratio 13 Glucose Level 99 70-105 MG/DL Uric Acid 3.8 2.6-7.2 MG/DL Calcium Level 8.1 L 8.5-10.1 MG/DL Corrected Calcium 8.7 8.5-10.1 MG/DL Total Bilirubin 0.4 0.1-1.0 MG/DL Aspartate Amino Transf (AST/SGOT) 25 5-34 U/L Alanine Aminotransferase (ALT/SGPT) 27 0-55 U/L Alkaline Phosphatase 83 40-136 U/L Lactate Dehydrogenase 202 125-220 U/L Total Protein 5.6 L 6.4-8.2 GM/DL Albumin 3.3 3.2-4.5 GM/DL Vital Signs 10/04/17 10/04/17 09:50 13:24 Temp 97.8 Pulse 65 Resp 18 B/P (MAP) 171/83 (112) O2 Delivery Room Air Assessment and plan 36-year-old 5 para 4 for female 33-2/7 weeks' gestation with severe preeclampsia. She had been given betamethasone on Saturday and Saturday of this week whenever she began showing manifestations of developing preeclampsia. She is admitted now AND WILL be transferred to [facility]. As her blood pressures are over 160/100 I have started magnesium for seizure prophylaxis. Dr. Hernandez is aware of the patient's status and has agreed to accept transfer. Ambulance transfer is pending. Preeclampsia at 33-2/7 weeks' gestation Allergies and Home Medications Allergies Coded Allergies: No Known Drug Allergies (Unverified , 12/24/10) Home Medications Ferrous Sulfate 325 Mg Tablet, 325 MG PO DAILY@0700 Prescribed by: LINN QUISPE on 05/12/16 0918 Omeprazole Magnesium 20 Mg Tablet.dr, 20 MG PO HS, (Reported) Potassium Bicarbonate/Cit AC 25 Meq Tablet.eff, 20 MEQ PO BID, (Reported) Vit W-Ca,Fe,FA(<1 mg) 1 Each Tablet, 1 EACH PO DAILY, (Reported) [Aldomet] , 1,000 MG PO UD, (Reported) Patient Home Medication List Home Medication List Reviewed: Yes Clinical Quality Measures DVT/VTE Risk/Contraindication: Risk Factor Score Per Nursin RFS Level Per Nursing on Admit: 2=Moderate LUIS EDUARDO LIMA MD Oct 04, 2017 2:15 pm
[2017-10-04] MEDS ORDERED: MAGNESIUM SULFATE DRIP 500 ML IV ONE (14:26)
[2017-10-04] MEDS ORDERED: MAGNESIUM SULFATE DRIP 500 ML IV SCH (15:00)
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
--- OUTSIDE RECORDS SUMMARY | 2017-10-04 18:10 | XMS REPORT ---
Author Author STEPHEN SOSA [facility] Address [address] [place] [address] Care Team Providers Care Control Systems Specialist Name Role Phone STEPHEN SOSA Unavailable PROBLEMS Type Condition ICD9-CM Code [id number] Code Onset Dates Condition Status SNOMED Code Problem Carpal tunnel syndrome, bilateral G56.03 Active [id number] Problem Essential hypertension I10 Active 54016482 ALLERGIES No Known Allergies SOCIAL HISTORY Never Assessed PLAN OF CARE VITAL SIGNS MEDICATIONS Medication Instructions Dosage Frequency Start Date End Date Duration Status Active Aspirin 81 MG Orally Once a day 1 tablet 24h Active Methyldopa 500 MG Orally Twice a day 1 tablet 12h Active RESULTS No Results PROCEDURES No Known procedures IMMUNIZATIONS No Known Immunizations MEDICAL (GENERAL) HISTORY Type Description Date Medical History Borderline Gestational Diabetes Medical History hypertension Medical History asthma Medical History Carpal Tunnel Syndrome - Bilateral Surgical History section x4 Surgical History ovarian cyst resection/ appendectomy Surgical History Kidney Stones Hospitalization History Surgery(s)/Childbirth(s) only
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
--- OUTSIDE RECORDS SUMMARY | 2017-10-04 18:10 | XMS REPORT ---
Author Author LLOYD GOODEN Organization [facility] [place] Address [address] [place] [address] Care Team Providers Care Medicine Worker Name Role Phone LLOYD GOODEN Unavailable PROBLEMS Type Condition ICD9-CM Code FFW94-QI Code Onset Dates Condition Status SNOMED Code Problem Carpal tunnel syndrome, bilateral G56.03 Active 23127727425491310 Problem Essential hypertension I10 Active 10604950 ALLERGIES No Information ENCOUNTERS Encounter Location Date Diagnosis [place] [address] 81794- 0270 12 Mar, 2017 Partial thickness burn of toe of right foot, initial encounter T25.231A and Superficial burn of toe of right foot, initial encounter T25.131A [facility] [address] [place] [id number] [place] [address] [id number] Feb, Encounter for test, result unknown Z32.00 [place] [address] [place] [id number] [place] [address] 84592- 1202 Feb, [place] [address] [place] [id number] [place] [address] 19182- 5993 Jan, BMI 40.0-44.9, adult Z68.41 ; Encounter for immunization Z23 and Essential hypertension I10 [place] [address] [place] [id number] [place] [address] 21416- 5718 Dec, [place] [address] 95853- 6349 Dec, BMI 40.0-44.9, adult Z68.41 ; Essential hypertension I10 and Acute bronchitis due to other specified organisms J20.8 [place] [address] 51883- 1423 Dec, Essential hypertension I10 [facility] [place] [address] [place] [id number], [place] [address]- 5911 15 Sep, 2016 Essential hypertension I10 ; Encounter for initial prescription of other contraceptives Z30.018 ; Carpal tunnel syndrome, bilateral G56.03 and Class 1 obesity without serious comorbidity in adult, unspecified BMI, unspecified obesity type E66.9 [facility] [place] [address], [place] [address]- 0541 14 Sep, [address] [id number] Aug, [place] [address] [place] [id number] [place] [address] 97085- 4933 Aug, Essential hypertension I10 [place] [address] [place] [address] 62665- 9856 Aug, Essential hypertension I10 and Trapezius muscle spasm M62.838 [place] [address] [place] [address] 83954- 9914 Apr, consult Z71.89 [facility] [id number] [id number] Sep, Positive test Z32.01 [place] [address], [place] [address]- 3031 May, [place] [address], [place] [address]- 7965 May, [place] [address] [place] [address] 20612- 0007 Apr, [place] [address] [place] [address] 92873- 2730 Feb, [place] [address] [place] [address] 04213- 9534 Feb, [facility] [place] [address], [place] [address]- 7075 Feb, IMMUNIZATIONS No Known Immunizations SOCIAL HISTORY Never Assessed REASON FOR VISIT test (walk-in) Ree DOMINGUEZ PLAN OF CARE VITAL SIGNS MEDICATIONS No Known Medications RESULTS Name Result Date Reference Range TEST, URINE (IN HOUSE) 2017-03-11 RESULTS positive Lot # [id number] Control + Exp date 06/17/2018 PROCEDURES Procedure Date Ordered Result Body Site URINE TEST Mar 11, 2017 INSTRUCTIONS MEDICATIONS ADMINISTERED No Known Medications MEDICAL (GENERAL) HISTORY Type Description Date Medical History Borderline Gestational Diabetes Medical History hypertension Medical History asthma Medical History Carpal Tunnel Syndrome - Bilateral Surgical History section x4 Surgical History ovarian cyst resection/ appendectomy Surgical History Kidney Stones Hospitalization History Surgery(s)/Childbirth(s) only
--- OUTSIDE RECORDS SUMMARY | 2017-10-04 18:10 | XMS REPORT ---
Author Author DAYANATRAVISYONG [facility] Address [address] [place] [address] Care Team Providers Care Printed Circuit Board Panels Plater Name Role Phone YONG ANNE Unavailable PROBLEMS Type Condition ICD9-CM Code YIH68-HA Code Onset Dates Condition Status SNOMED Code Problem Carpal tunnel syndrome, bilateral G56.03 Active 22081103483889127 Problem Essential hypertension I10 Active 50463550 ALLERGIES No Information ENCOUNTERS Encounter Location Date Diagnosis [place] [address] [place] [id number] [place] [address] 77790- 5850 12 Mar, 2017 Partial thickness burn of toe of right foot, initial encounter T25.231A and Superficial burn of toe of right foot, initial encounter T25.131A [facility] [address] [address] [id number] [place] [address] [id number] Feb, Encounter for test, result unknown Z32.00 [place] [address] [place] [address] 21053- 4099 Feb, [place] [address] [place] [id number] [place] [address] 49215- 0606 Jan, BMI 40.0-44.9, adult Z68.41 ; Encounter for immunization Z23 and Essential hypertension I10 [place] [address] [place] [id number] [place] [address] 11510- 2494 Dec, [place] [address] 03771- 6162 14 Dec, 2016 BMI 40.0-44.9, adult Z68.41 ; Essential hypertension I10 and Acute bronchitis due to other specified organisms J20.8 [place] [address] 27854- 6982 14 Dec, 2016 Essential hypertension I10 [facility] [address] [address]- 4301 Sep, Essential hypertension I10 ; Encounter for initial prescription of other contraceptives Z30.018 ; Carpal tunnel syndrome, bilateral G56.03 and Class 1 obesity without serious comorbidity in adult, unspecified BMI, unspecified obesity type E66.9 [facility] [address] [place] [address] 26403- 2153 Sep, [address] [id number] Aug, [place] [address] [place] [id number] [place] [address] 71316- 5299 Aug, Essential hypertension I10 [place] [address] [place] [address] [place] [address] 73365- 8863 Aug, Essential hypertension I10 and Trapezius muscle spasm M62.838 [place] [address] [place] [address] [place] [address] 85075- 4802 Apr, consult Z71.89 [facility] [id number] [address] Sep, Positive test Z32.01 [facility] [address] [place] [address] 30358- 0581 May, [place] [address] [place] [address] 02470- 8349 May, [place] [address] [place] [id number] [place] [address] 30670- 7273 Apr, [place] [address] [place] [id number] [place] [address] 12434- 8324 Feb, [place] [address] [place] [id number] [place] [address] 44795- 0980 Feb, [place] [address] [place] [address] 94312- 9917 Feb, IMMUNIZATIONS No Known Immunizations SOCIAL HISTORY Never Assessed REASON FOR VISIT results PLAN OF CARE VITAL SIGNS MEDICATIONS No Known Medications RESULTS No Results PROCEDURES No Known procedures INSTRUCTIONS MEDICATIONS ADMINISTERED No Known Medications MEDICAL (GENERAL) HISTORY Type Description Date Medical History Borderline Gestational Diabetes Medical History hypertension Medical History asthma Medical History Carpal Tunnel Syndrome - Bilateral Surgical History section x4 Surgical History ovarian cyst resection/ appendectomy Surgical History Kidney Stones Hospitalization History Surgery(s)/Childbirth(s) only
--- OUTSIDE RECORDS SUMMARY | 2017-10-04 18:10 | XMS REPORT ---
Author Author LLOYD GOODEN Organization [facility] Address [address] [place] [address] Care Team Providers Care Military Personnel Specialist Name Role Phone LLOYD GOODEN Unavailable PROBLEMS Type Condition ICD9-CM Code KNP88-XB Code Onset Dates Condition Status SNOMED Code Problem Carpal tunnel syndrome, bilateral G56.03 Active 16372373890199762 Problem Essential hypertension I10 Active 20262930 ALLERGIES No Information ENCOUNTERS Encounter Location Date Diagnosis [place] [address] 53897- 9810 12 Mar, 2017 Partial thickness burn of toe of right foot, initial encounter T25.231A and Superficial burn of toe of right foot, initial encounter T25.131A [facility] [address] [address] [address] [place] [address] [id number] Feb, Encounter for test, result unknown Z32.00 [place] [address] [address] [id number] [place] [address] 14393- 2757 Feb, [place] [address] [id number] [place] [address] 71705- 9000 Jan, BMI 40.0-44.9, adult Z68.41 ; Encounter for immunization Z23 and Essential hypertension I10 [place] [address] [place] [id number] [place] [address] 11806- 5762 Dec, [place] [address] 40318- 2155 Dec, BMI 40.0-44.9, adult Z68.41 ; Essential hypertension I10 and Acute bronchitis due to other specified organisms J20.8 [place] [address] [id number] [place] [address] 06616- 2734 Dec, Essential hypertension I10 [facility] [address] [place] [id number], [place] [address]- 5058 15 Sep, 2016 Essential hypertension I10 ; Encounter for initial prescription of other contraceptives Z30.018 ; Carpal tunnel syndrome, bilateral G56.03 and Class 1 obesity without serious comorbidity in adult, unspecified BMI, unspecified obesity type E66.9 [facility] [address], [place] [address]- 7469 14 Sep, [address], [place] [id number] Aug, [place] [address] [place] [id number] [place] [address] 52038- 4860 Aug, Essential hypertension I10 [place] [address] [place] [address] 65229- 6033 Aug, Essential hypertension I10 and Trapezius muscle spasm M62.838 [place] [address] [place] [address] 51128- 6941 Apr, consult Z71.89 [facility] [id number] [id number] Sep, Positive test Z32.01 [place] [address], [place] [address]- 4693 May, [place] [address], [place] [address]- 5990 May, [place] [address] [place] [address] 15944- 1719 Apr, [place] [address] [place] [address] 97992- 8932 Feb, [place] [address] [place] [id number] [place] [address] 62223- 6028 Feb, [place] [address], [place] [address]- 7574 Feb, IMMUNIZATIONS No Known Immunizations SOCIAL HISTORY Never Assessed REASON FOR VISIT Requests return call PLAN OF CARE VITAL SIGNS MEDICATIONS No [...]
--- OUTSIDE RECORDS SUMMARY | 2017-10-04 18:10 | XMS REPORT ---
Author Author ZAINAB BEE [facility] Address [address] [place] [address] Care Team Providers Care Lead Nuclear Medicine Technologist Name Role Phone JACOBO LAMBY Unavailable PROBLEMS Type Condition ICD9-CM Code KET04-BS Code Onset Dates Condition Status SNOMED Code Problem Carpal tunnel syndrome, bilateral G56.03 Active 03168766873287743 Problem Essential hypertension I10 Active 26530330 ALLERGIES No Known Allergies ENCOUNTERS Encounter Location Date Diagnosis [address] [address]- 1144 12 Mar, 2017 Partial thickness burn of toe of right foot, initial encounter T25.231A and Superficial burn of toe of right foot, initial encounter T25.131A [facility] [address] [id number] [place] [address] [id number] Feb, Encounter for test, result unknown Z32.00 [place] [address] [place] [address] 93551- 8861 Feb, [place] [address] [place] [address] 75276- 6898 Jan, BMI 40.0-44.9, adult Z68.41 ; Encounter for immunization Z23 and Essential hypertension I10 [place] [address] [place] [address] 18463- 2646 Dec, [address] 76578- 7551 14 Dec, 2016 BMI 40.0-44.9, adult Z68.41 ; Essential hypertension I10 and Acute bronchitis due to other specified organisms J20.[address] 10372- 9263 14 Dec, 2016 Essential hypertension I10 [facility] [address], [place] [address]- 5430 15 Sep, 2016 Essential hypertension I10 ; Encounter for initial prescription of other contraceptives Z30.018 ; Carpal tunnel syndrome, bilateral G56.03 and Class 1 obesity without serious comorbidity in adult, unspecified BMI, unspecified obesity type E66.9 [facility] [address] [id number] [place] [address] 39375- 6105 14 Sep, [address] [id number] Aug, [place] [address] [id number] [place] [address] 49077- 2571 Aug, Essential hypertension I10 [place] [address] [place] [address] [id number] [place] [address] 77842- 8073 Aug, Essential hypertension I10 and Trapezius muscle spasm M62.838 [place] [address] [place] [address] [id number] [place] [address] 40643- 4794 Apr, consult Z71.89 [facility] [address] [place] [address] [phone] Sep, Positive test Z32.01 [facility] [id number] [place] [address] 43002- 0431 May, [place] [address] [place] [address] [id number] [place] [address] 02449- 1774 May, [place] [address] [place] [id number] [place] [address] 29847- 1248 Apr, [place] [address] [place] [id number] [place] [address] 31939- 6845 Feb, [place] [address] [place] [id number] [place] [address] 74851- 8653 Feb, [place] [address] [place] [id number] [place] [address] 77960- 2091 Feb, IMMUNIZATIONS No Known Immunizations SOCIAL HISTORY Never Assessed REASON FOR VISIT shoulder pain, right, started yesterday, taking ibuprofen but not helping-- John, h/o hypertension, has been off meds for approx 4 months PLAN OF CARE Activity Details Follow Up 2 Weeks Reason:Next available establish care VITAL SIGNS Height 61 in 2016-09-11 Weight 204 lbs 2016-09-11 Temperature 97.9 degrees Fahrenheit 2016-09-11 Heart Rate 60 bpm 2016-09-11 Respiratory Rate 20 2016-09-11 BMI 38.54 kg/m2 2016-09-11 Blood pressure systolic 170 mmHg 2016-09-11 Blood pressure diastolic 98 mmHg 2016-09-11 MEDICATIONS Medication Instructions Dosage Frequency Start Date [...]
--- OUTSIDE RECORDS SUMMARY | 2017-10-04 18:10 | XMS REPORT ---
Author Author LLOYD GOODEN Organization [facility] Address [address] [place] [address] Care Team Providers Care Workforce Management Analyst Name Role Phone LLOYD GOODEN Unavailable PROBLEMS Type Condition ICD9-CM Code QKU20-KH Code Onset Dates Condition Status SNOMED Code Problem Carpal tunnel syndrome, bilateral G56.03 Active 44202071273520944 Problem Essential hypertension I10 Active 18253601 ALLERGIES Substance Reaction Event Type Date Status Suprax Swelling, rash Drug Allergy Jan, Active ENCOUNTERS Encounter Location Date Diagnosis [place] [address] [place] [address] 43710- 6121 12 Mar, 2017 Partial thickness burn of toe of right foot, initial encounter T25.231A and Superficial burn of toe of right foot, initial encounter T25.131A [facility] [id number] [place] [address] [id number] Feb, Encounter for test, result unknown Z32.00 [place] [address] [place] [address] 59130- 4694 Feb, [place] [address] [place] [address] 92309- 6044 Jan, BMI 40.0-44.9, adult Z68.41 ; Encounter for immunization Z23 and Essential hypertension I10 [place] [address] [place] [address] 02708- 9911 Dec, [place] [id number] [place] [address] 58850- 5698 Dec, BMI 40.0-44.9, adult Z68.41 ; Essential hypertension I10 and Acute bronchitis due to other specified organisms J20.8 [place] [id number] [place] [address] 94675- 2807 Dec, Essential hypertension I10 [facility] [address], [place] [address]- 7057 15 Sep, 2016 Essential hypertension I10 ; Encounter for initial prescription of other contraceptives Z30.018 ; Carpal tunnel syndrome, bilateral G56.03 and Class 1 obesity without serious comorbidity in adult, unspecified BMI, unspecified obesity type E66.9 [facility] [address] [place] [address] 96077- 8346 14 Sep, 2016 [place] [id number] [id number] Aug, [facility] [id number] [place] [address] 89757- 7025 Aug, Essential hypertension I10 [facility] [id number] [place] [address] 12869- 5882 Aug, Essential hypertension I10 and Trapezius muscle spasm M62.838 [facility] [address] [place] [address] 32805- 9689 Apr, consult Z71.89 [facility] [address] [place] [address] [phone] Sep, Positive test Z32.01 [facility] [address], [place] [address]- 6186 May, [facility] [address] [place] [address] 24809- 6324 May, [facility] [address] [place] [address] 05711- 8761 Apr, [facility] [id number] [place] [address] 85691- 6493 Feb, [facility] [address] [place] [address] 88685- 7385 Feb, [facility] [id number] [place] [address] 39465- 2189 Feb, IMMUNIZATIONS Vaccine Route Administration Date Status FLUARIX QUAD (3 AND UP) 2016 IM Intramuscular Jan 28, 2017 Administered SOCIAL HISTORY Never Assessed REASON FOR VISIT Blood Pressure - OLEKSANDR Lopes PLAN OF CARE Activity Details Follow Up 3 Months Reason:HTN VITAL SIGNS Height 61 in 2017-01-28 Weight 212 lbs 2017-01-28 Temperature 98.2 degrees Fahrenheit 2017-01-28 Heart Rate 80 bpm 2017-01-28 Respiratory Rate 20 2017-01-28 BMI 40.05 kg/m2 2017-01-28 Blood pressure systolic 130 mmHg 2017-01-28 Blood pressure diastolic 78 mmHg 2017-01-28 MEDICATIONS Medication Instructions Dosage Frequency Start Date End Date Duration Status ProAir HFA 108 (90 Base) MCG/ACT Inhalation every 6 hrs 2 puffs as needed 6h Dec, 12 months Active Hydrochlorothiazide 12.5 MG Orally Once a day 2 capsules 24h Aug, 90 days Active Tri-Sprintec 0.18/0.215/0.25 MG-35 MCG Orally Once a day 1 tablet 24h Sep, 30 day(s) Not-Taking NIFEdipine ER 30 MG Orally Once a day 1 tablet on an empty stomach 24h Jan, 90 days Active RESULTS No Results PROCEDURES Procedure Date Ordered Result Body Site FLUARIX QUAD (3 AND UP) 2016Jan 28, 2017 SINGLE IMMUNIZATION ADMIN Jan 28, 2017 INSTRUCTIONS MEDICATIONS ADMINISTERED No Known Medications MEDICAL (GENERAL) HISTORY Type Description Date Medical History Borderline Gestational Diabetes Medical History hypertension Medical History asthma Medical History Carpal Tunnel Syndrome - Bilateral Surgical History section x4 Surgical History ovarian cyst resection/ appendectomy Surgical History Kidney Stones Hospitalization History Surgery(s)/Childbirth(s) only
== END 2017-10-04 15:03 | disposition short-term general hospital (02) | DRG 781 ==
LOC: LDRP 09:40 → 3RD 13:12 → LDRP 13:12
PROVIDERS: ADMIT Obstetrics & Gynecology; ATTEND Obstetrics & Gynecology
DX: O11.3 Pre-existing hypertension with pre-eclampsia, third trimester (principal); Z3A.33 33 weeks gestation of pregnancy
CPT/HCPCS: 36415; 80053; 81000; 82570; 83615; 84156; 84550; 85025; 87088

== ENCOUNTER 2018-06-27 20:17 | Emergency (ER) | payer SELFPAY ==
[~2018-06-27] VITALS: Ht 154.9 cm; Wt 90.7 kg
[~2018-06-27 20:17] MED LIST changes: +Aldomet PO; +OMEP20TA33 PO; +POTA25TA7 PO
--- OUTSIDE RECORDS SUMMARY | 2018-06-27 20:24 | XMS REPORT ---
Author Author Migration, Doctor Organization [facility] Address Unknown Phone Unavailable Care Team Providers Care Monorail Operator Name Role Phone Migration, Doctor Unavailable Unavailable PROBLEMS Type Condition ICD9-CM Code [id number] Code Onset Dates Condition Status SNOMED Code Problem Essential hypertension I10 Active 98665885 Problem Carpal tunnel syndrome, bilateral G56.03 Active [id number] ALLERGIES No Information ENCOUNTERS Encounter Location Date Diagnosis [address] [address] Jan, Essential hypertension I10 and Right lower quadrant abdominal pain R10.[address] [address] 12 Mar, 2017 Partial thickness burn of toe of right foot, initial encounter T25.231A and Superficial burn of toe of right foot, initial encounter T25.131A [facility] [id number] [place] [id number] Feb, Encounter for test, result unknown Z32.00 [place] [id number] [place] [address]80- [address] Feb, [place] [id number] [place] [address] 16243- 0726 Jan, BMI 40.0-44.9, adult Z68.41 ; Encounter for immunization Z23 and Essential hypertension I10 [place] [id number] [place] [address] 48335- 7030 Dec, [address] [address] 14 Dec, 2016 BMI 40.0-44.9, adult Z68.41 ; Essential hypertension I10 and Acute bronchitis due to other specified organisms J20.[address] [place] [address] 14 Dec, 2016 Essential hypertension I10 [facility] [id number] [place] [address] 75954- 9938 Sep, Essential hypertension I10 ; Encounter for initial prescription of other contraceptives Z30.018 ; Carpal tunnel syndrome, bilateral G56.03 and Class 1 obesity without serious comorbidity in adult, unspecified BMI, unspecified obesity type E66.9 [facility] [id number] [place] [address]30- 8842 14 Sep, [id number] [id number] Aug, [facility] [id number] [place] [address] 03471- 6675 Aug, Essential hypertension I10 [facility] [id number] [place] [address] 43837- 7602 Aug, Essential hypertension I10 and Trapezius muscle spasm M62.838 [facility] [id number] [place] [address] 74860- 0588 Apr, consult Z71.89 [facility] [id number] [place] [address] [id number] Sep, Positive test Z32.01 [facility] [id number] [place] [address] 99466- 3238 May, [facility] [id number] [place] [address] 64847- 1227 May, [facility] [id number] [place] [address] 57126- 9623 Apr, [facility] [id number] [place] [address] 75758- 3179 Feb, [facility] [id number] [place] [address] 00747- 8280 Feb, [facility] [id number] [place] [address] 76455- 7559 Feb, IMMUNIZATIONS No Known Immunizations SOCIAL HISTORY Never Assessed [place] FOR V[place]IT [place] [place] VITAL SIGNS MEDICATIONS No Known Medications RESULTS No Results PROCEDURES No Known procedures INSTRUCTIONS MEDICATIONS ADMINISTERED No Known Medications MEDICAL (GENERAL) HISTORY Type Description Date Medical History Borderline Gestational Diabetes Medical History hypertension Medical History asthma Medical History Carpal Tunnel Syndrome - Bilateral Medical History preeclampsia Surgical History section x4 Surgical History ovarian cyst resection/ appendectomy Surgical History Kidney Stones Hospitalization History Surgery(s)/Childbirth(s) only
--- OUTSIDE RECORDS SUMMARY | 2018-06-27 20:24 | XMS REPORT ---
Author Author LINN GARCIA Organization [facility] Address [address] [place] [address] Care Team Providers Care Steam Clean Machine Operator Name Role Phone LINN GARCIA Unavailable PROBLEMS Type Condition ICD9-CM Code EGW76-DX Code Onset Dates Condition Status SNOMED Code Problem Carpal tunnel syndrome, bilateral G56.03 Active [id number] Problem Essential hypertension I10 Active 91356115 ALLERGIES Substance Reaction Event Type Date Status Suprax Swelling, rash Drug Allergy Jan, Active ENCOUNTERS Encounter Location Date Diagnosis [place] [id number] [place] [address] 29083- 6[address] Jan, Essential hypertension I10 and Right lower quadrant abdominal pain R10.31 [place] [id number] [place] [address] 14377- 1441 12 Mar, 2017 Partial thickness burn of toe of right foot, initial encounter T25.231A and Superficial burn of toe of right foot, initial encounter T25.131A [facility] [id number] [place] [id number] Feb, Encounter for test, result unknown Z32.00 [place] [id number] [place] [address] 50277- 7778 Feb, [place] [id number] [place] [address] 74255- 9426 Jan, BMI 40.0-44.9, adult Z68.41 ; Encounter for immunization Z23 and Essential hypertension I10 [place] [id number] [place] [address] 45779- 7467 Dec, [place] [id number] [place] [address] 87287- 7436 Dec, BMI 40.0-44.9, adult Z68.41 ; Essential hypertension I10 and Acute bronchitis due to other specified organisms J20.8 [facility] [id number] [place] [address] 07220- 9525 14 Dec, 2016 Essential hypertension I10 [facility] [id number] [place] [address] 66895- 6057 15 Sep, 2016 Essential hypertension I10 ; Encounter for initial prescription of other contraceptives Z30.018 ; Carpal tunnel syndrome, bilateral G56.03 and Class 1 obesity without serious comorbidity in adult, unspecified BMI, unspecified obesity type E66.9 [facility] [id number] [place] [address] 11088- 3685 Sep, [address] [id number] Aug, [place] [id number] [place] [address] 90334- 1395 Aug, Essential hypertension I10 [facility] [id number] [place] [address] 97120- 1904 Aug, Essential hypertension I10 and Trapezius muscle spasm M62.838 [place] [id number] [place] [address] 75310- 5478 Apr, consult Z71.89 [facility] [id number] [id number] Sep, Positive test Z32.01 [facility] [id number] [place] [address] 08412- 0817 May, [facility] [id number] [place] [address] 47836- 3247 May, [place] [id number] [place] [address] 67321- 8591 Apr, [facility] [id number] [place] [address] 39365- 6971 Feb, [place] [id number] [place] [address] Feb, [facility] [address] [facility] [id number] [place] [phone] Feb, IMMUNIZATIONS No Known Immunizations SOCIAL HISTORY Never Assessed REASON FOR VISIT Blood Pressure-ANA aguilera, PT has been out of blood pressure medicine for about a month now . wants to get back on it. she also has been having stomach pain on her right side and have been feeling nausea PLAN OF CARE Activity Details Follow Up 3 Months Reason: VITAL SIGNS Height 61 in 2018-02-04 Weight 212.5 lbs 2018-02-04 Temperature 97.4 degrees Fahrenheit 2018-02-04 Heart Rate 80 bpm 2018-02-04 Respiratory Rate 20 2018-02-04 Oximetry on room air:98 % 2018-02-04 BMI 40.15 kg/m2 2018-02-04 Blood pressure systolic 150 mmHg 2018-02-04 Blood pressure diastolic 98 mmHg 2018-02-04 MEDICATIONS Medication Instructions Dosage Frequency Start Date End Date Duration Status Hydrochlorothiazide 12.5 MG Orally Once a day 1 tablet in the morning 24h Jan, 30 day(s) Active Lisinopril 10 mg Orally Once a day 1 tablet 24h Jan, 30 day(s) Active RESULTS No Results PROCEDURES [...]
--- OUTSIDE RECORDS SUMMARY | 2018-06-27 20:24 | XMS REPORT ---
Author Author Migration, Doctor Organization 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 Machine Name Role Phone Migration, Doctor Unavailable Unavailable PROBLEMS Type Condition ICD9-CM Code BMD32-ET Code Onset Dates Condition Status SNOMED Code Problem Essential hypertension I10 Active 20847052 Problem Carpal tunnel syndrome, bilateral G56.03 Active [id number] ALLERGIES No Information ENCOUNTERS Encounter Location Date Diagnosis [address] [address] Jan, Essential hypertension I10 and Right lower quadrant abdominal pain R10.[address] [address] 12 Mar, 2017 Partial thickness burn of toe of right foot, initial encounter T25.231A and Superficial burn of toe of right foot, initial encounter T25.131A [facility] [id number] [place] [id number] Feb, Encounter for test, result unknown Z32.00 [address] [place] [id number] [place] [address] 52088- 2087 Feb, [place] [id number] [place] [address] 06103- 4576 Jan, BMI 40.0-44.9, adult Z68.41 ; Encounter for immunization Z23 and Essential hypertension I10 [place] [id number] [place] [address] 77790- 0013 Dec, [address] [address]- [address] 14 Dec, 2016 BMI 40.0-44.9, adult Z68.41 ; Essential hypertension I10 and Acute bronchitis due to other specified organisms J20.[address] [place] [address]- 5776 14 Dec, 2016 Essential hypertension I10 [facility] [id number] [place] [address] 69222- 7429 Sep, Essential hypertension I10 ; Encounter for initial prescription of other contraceptives Z30.018 ; Carpal tunnel syndrome, bilateral G56.03 and Class 1 obesity without serious comorbidity in adult, unspecified BMI, unspecified obesity type E66.9 [facility] [id number] [place] [address] 19752- 3852 14 Sep, [address] [id number] Aug, [facility] [id number] [place] [address] 50444- 4928 Aug, Essential hypertension I10 [facility] [id number] [place] [address] 60117- 1721 Aug, Essential hypertension I10 and Trapezius muscle spasm M62.838 [facility] [id number] [place] [address] 82685- 8612 Apr, consult Z71.89 [facility] [id number] [place] [address] [id number] Sep, Positive test Z32.01 [facility] [id number] [place] [address] 30724- 8803 May, [facility] [id number] [place] [address] 14498- 6340 May, [facility] [id number] [place] [address] 63445- 4602 Apr, [facility] [id number] [place] [address] 26066- 5862 Feb, [facility] [id number] [place] [address] 37469- 2543 Feb, [facility] [id number] [place] [address] 53907- 6290 Feb, IMMUNIZATIONS No Known Immunizations SOCIAL HISTORY Never Assessed REASON FOR VISIT [place] [place] CARE VITAL SIGNS MEDICATIONS Medication Instructions Dosage Frequency Start Date End Date Duration Status Depo-Provera Contraceptive 150 mg/mL inject 150 mg by intramuscular route every 3 months Feb, Active RESULTS No Results PROCEDURES No Known [...]
[2018-06-27] MEDS ORDERED: LABETALOL HCL 20 MG/4 ML VIAL IV ONE (20:30)
--- NOTE | 2018-06-27 20:32 | ED Headache ---
General Stated Complaint: HEADACHE x6 DAYS Source: patient History of Present Illness Date Seen by Provider: June 27, 2018 Time Seen by Provider: 20:30 Initial Comments To ER per private vehicle with reports of a 4 to five-day history of an occipital headache. When she bends forward she becomes nauseous and somewhat dizzy and the headache increases. No worse after laying flat upon awakening in the mornings than it is throughout the day. No visual changes, no focal neurologic deficits or weaknesses that she is noticed. She is on hydrochlorothiazide 12.5 mg daily and lisinopril 10 mg daily. She tried Tylenol and ibuprofen and even hydrocodone for the headache without much relief. Severity/Quality: moderate Location: occipital Prior Headaches/Recent Trauma: occasional headaches Associated Symptoms: No confusion, No fatigue, No facial pain, No fever/chills , No flushing, No loss of consciousness; nausea/vomiting; No nasal congestion; nasal drainage; No numbness in legs/feet, No rash, No seizures, No sinus infection, No stiff neck, No vision changes, No weakness Allergies and Home Medications Allergies Coded Allergies: No Known Drug Allergies (Unverified , 12/24/10) Home Medications Amoxicillin/Potassium Clav 1 Each Tablet, 1 EACH PO BID Prescribed by: KITTY ROMO on 06/27/182155 Ferrous Sulfate 325 Mg Tablet, 325 MG PO DAILY@0700 Prescribed by: LINN QUISPE on 05/12/16 0918 Omeprazole Magnesium 20 Mg Tablet.dr, 20 MG PO HS, (Reported) Potassium Bicarbonate/Cit AC 25 Meq Tablet.eff, 20 MEQ PO BID, (Reported) Vit W-Ca,Fe,FA(<1 mg) 1 Each Tablet, 1 EACH PO DAILY, (Reported) [Aldomet] , 1,000 MG PO UD, (Reported) Patient Home Medication List Home Medication List Reviewed: Yes Review of Systems Review of Systems Constitutional: see HPI; No chills, No fever Eyes: No Symptoms Reported; Denies Blurred Vision Ears, Nose, Mouth, Throat: no symptoms reported Respiratory: no symptoms reported Cardiovascular: no symptoms reported Genitourinary: no symptoms reported Musculoskeletal: no symptoms reported Skin: no symptoms reported Past Beyerrp-Qhiend-Gbpncu Hx Patient Social History Recent Foreign Travel: No Contact w/Someone Who Travel: No Recent Hopitalizations: No Immunizations Up To Date PED Vaccines UTD: Yes Date of Influenza Vaccine: Mar 09, 2016 Seasonal Allergies Seasonal Allergies: No Past Medical History Surgeries: Yes Respiratory: Yes (exercise induced asthma) Asthma Cardiac: Yes (with current ) Neurological: No Female Reproductive Disorders: Denies Sexually Transmitted Disease: No HIV/AIDS: No Genitourinary: Yes Kidney Stones Gastrointestinal: No Musculoskeletal: No HEENT: No Cancer: No Psychosocial: No Integumentary: No Blood Disorders: No Adverse Reaction/Blood Tranf: No Family Medical History Diabetes mellitus (MGM) FH: COPD (chronic obstructive pulmonary disease) (MGM) FHx: heart disease (MGM) Physical Exam Vital Signs Vital Signs - First Documented 06/27/18 20:20 Temp 98.0 Pulse 80 Resp 16 B/P (MAP) 223/130 (161) Pulse Ox 99 O2 Delivery Room Air Capillary Refill : Height, Weight, BMI Height: 5'1.00" Weight: 221lbs. 0.4oz. 100.700856sv; 41.8 BMI Method:Stated General Appearance: WD/WN, no apparent distress, other (GCS 15 alert and oriented. Blood pressure checked twice in each arm with a consistent reading about 220/130, heart rate in the 80s.) HEENT: PERRL/EOMI, normal ENT inspection Neck: non-tender, full range of motion Respiratory: no respiratory distress Extremities: normal range of motion, non-tender Psychiatric: alert, oriented x 3 Crainal Nerves: normal hearing, normal speech, PERRL Skin: normal color, warm/dry Progress/Results/Core Measures Results/Orders Lab Results Laboratory Tests Test 06/27/18 20:44 06/27/18 20:48 Range/Units White Blood Count 7.9 4.3-11.0 10^3/uL Red Blood Count 4.87 4.35-5.85 10^6/uL Hemoglobin 11.9 11.5-16.0 G/DL Hematocrit 37 35-52 % Mean Corpuscular Volume 77 L 80-99 FL Mean Corpuscular Hemoglobin 24 L 25-34 PG Mean Corpuscular Hemoglobin Concent 32 32-36 G/DL Red Cell Distribution Width 16.3 H 10.0-14.5 % Platelet Count 365 130-400 10^3/uL Mean Platelet Volume 10.5 H 7.4-10.4 FL Neutrophils (%) (Auto) 60 42-75 % Lymphocytes (%) (Auto) 27 12-44 % Monocytes (%) (Auto) 9 0-12 % Eosinophils (%) (Auto) 3 0-10 % Basophils (%) (Auto) 0 0-10 % Neutrophils # (Auto) 4.8 1.8-7.8 X 10^3 Lymphocytes # (Auto) 2.1 1.0-4.0 X 10^3 Monocytes # (Auto) 0.7 0.0-1.0 X 10^3 Eosinophils # (Auto) 0.3 0.0-0.3 10^3/uL Basophils # (Auto) 0.0 0.0-0.1 10^3/uL Sodium Level 139 135-145 MMOL/L Potassium Level 4.0 3.6-5.0 MMOL/L Chloride Level 104 98-107 MMOL/L Carbon Dioxide Level 22 21-32 MMOL/L Anion Gap 13 5-14 MMOL/L Blood Urea Nitrogen 15 7-18 MG/DL Creatinine 0.76 0.60-1.30 MG/DL Estimat Glomerular Filtration Rate > 60 BUN/Creatinine Ratio 20 Glucose Level 98 70-105 MG/DL Calcium Level 9.6 8.5-10.1 MG/DL Corrected Calcium 8.5-10.1 MG/DL Total Bilirubin 0.3 0.1-1.0 MG/DL Aspartate Amino Transf (AST/SGOT) 16 5-34 U/L Alanine Aminotransferase (ALT/SGPT) 17 0-55 U/L Alkaline Phosphatase 85 40-136 U/L Total Protein 7.8 6.4-8.2 GM/DL Albumin 4.7 H 3.2-4.5 GM/DL Thyroid Stimulating Hormone (TSH) 2.76 0.35-4.94 UIU/ML Serum Test, Qualitative NEGATIVE NEGATIVE Urine Color YELLOW Urine Clarity CLEAR Urine pH 6.5 5-9 Urine Specific [place] 1.015 L 1.016-1.022 Urine Protein NEGATIVE NEGATIVE Urine Glucose (UA) NEGATIVE NEGATIVE Urine Ketones NEGATIVE NEGATIVE Urine Nitrite NEGATIVE NEGATIVE Urine Bilirubin NEGATIVE NEGATIVE Urine Urobilinogen NORMAL NORMAL MG/DL Urine Leukocyte Esterase NEGATIVE NEGATIVE Urine RBC (Auto) NEGATIVE NEGATIVE Urine RBC RARE /HPF Urine WBC 2-5 /HPF Urine Squamous Epithelial Cells 2-5 /HPF Urine Crystals NONE /LPF Urine Bacteria TRACE /HPF Urine Casts NONE /LPF Urine Mucus NEGATIVE /LPF Urine Culture Indicated NO My Orders Orders - KITTY ROMO APRN Ct Head Wo (06/27/18 20:29) Cbc With Automated Diff (06/27/18 20:29) Comprehensive Metabolic Panel (06/27/18 20:29) Ua Culture If Indicated (06/27/18 20:29) Hcg,Qualitative Serum (06/27/18 20:29) Ed Iv/Invasive Line Start (06/27/18 20:29) Labetalol Injection (Normodyne Injection (06/27/18 20:30) Thyroid Stimulating Hormone (06/27/18 20:42) Clonidine Tablet (Catapres Tablet) (06/27/18 22:00) Ketorolac Injection (Toradol Injection) (06/27/18 22:00) Diphenhydramine Injection (Benadryl Inje (06/27/18 22:00) Prochlorperazine Injection (Compazine In (06/27/18 22:00) Urinalysis (06/27/18 20:48) Medications Given in ED Vital Signs/I&O 06/27/18 06/27/18 20:20 22:36 Temp 98.0 Pulse 80 82 Resp 16 16 B/P (MAP) 223/130 (161) 153/109 (124) Pulse Ox 99 99 O2 Delivery Room Air Room Air Departure Impression Primary Impression: Headache Qualified Codes: R51 - Headache Additional Impressions: Sinusitis Qualified Codes: J01.00 - Acute maxillary sinusitis, unspecified Uncontrolled hypertension Disposition: HOME, SELF-CARE Condition: Stable Departure-Patient Inst. Decision time for Depature: 21:55 Referrals: [facility] [place] Primary Care Physician Patient Instructions: Headache, Adult (DC), Sinusitis, Adult (DC) Add. Discharge Instructions: 1. Return to ER for any concerns 2. Follow-up with your doctor next week 3. In the meantime increase your lisinopril dose from 10 mg daily to 20 mg daily. Continue the hydrocodone thiazide at the same dose. Take antibiotics as directed for the sinusitis. Scripts Amoxicillin/Potassium Clav (Augmentin 875-125 Tablet) 1 Each Tablet 1 EACH PO BID, #14 TAB 0 Refills Prov: KITTY ROMO APRN 06/27/18 KITTY ROMO APRN June 27, 2018 20:32
[2018-06-27 21:02] LABS: BASOPHILS % (AUTO) 0 % (0-10); EOSINOPHILS # (AUTO) 0.3 10^3/uL (0.0-0.3); EOSINOPHILS % (AUTO) 3 % (0-10); HEMATOCRIT 37 % (35-52); HEMOGLOBIN 11.9 G/DL (11.5-16.0); LYMPHOCYTES # (AUTO) 2.1 X 10^3 (1.0-4.0); LYMPHOCYTES % (AUTO) 27 % (12-44); MEAN CORPUSCULAR HEMOGLOBIN 24 PG (25-34); MEAN CORPUSCULAR HGB CONC 32 G/DL (32-36); MEAN CORPUSCULAR VOLUME 77 FL (80-99); MEAN PLATELET VOLUME 10.5 FL (7.4-10.4); MONOCYTES # (AUTO) 0.7 X 10^3 (0.0-1.0); MONOCYTES % (AUTO) 9 % (0-12); NEUTROPHILS # (AUTO) 4.8 X 10^3 (1.8-7.8); NEUTROPHILS % (AUTO) 60 % (42-75); PLATELET COUNT 365 10^3/uL (130-400); RED CELL DISTRIBUTION WIDTH 16.3 % (10.0-14.5); WHITE BLOOD COUNT 7.9 10^3/uL (4.3-11.0)
[2018-06-27 21:16] LABS: ALANINE AMINOTRANSFERASE 17 U/L (0-55); ALBUMIN 4.7 GM/DL (3.2-4.5); ALKALINE PHOSPHATASE 85 U/L (40-136); BILIRUBIN,TOTAL 0.3 MG/DL (0.1-1.0); BUN/CREATININE RATIO 20; CALCIUM 9.6 MG/DL (8.5-10.1); CARBON DIOXIDE 22 MMOL/L (21-32); CHLORIDE 104 MMOL/L (98-107); CREATININE SERUM 0.76 MG/DL (0.60-1.30); GFR ESTIMATED > 60; GLUCOSE 98 MG/DL (70-105); SODIUM 139 MMOL/L (135-145); TOTAL PROTEIN 7.8 GM/DL (6.4-8.2)
[2018-06-27 21:18] LABS: BILIRUBIN,URINE NEGATIVE (NEGATIVE); CLARITY,URINE CLEAR; COLOR,URINE YELLOW; GLUCOSE, URINE (UA) 2+ (NEGATIVE); KETONES,URINE 2+ (NEGATIVE); LEUKOCYTE ESTERASE ,URINE 1+ (NEGATIVE); NITRITE,URINE POSITIVE (NEGATIVE); PH,URINE 6.5 (5-9); PROTEIN,URINE 2+ (NEGATIVE); UROBILINOGEN,URINE NORMAL (NORMAL)
[2018-06-27 21:27] LABS: BACTERIA,URINE TRACE /HPF; RBC,URINE RARE /HPF
--- NOTE | 2018-06-27 21:41 | Diagnostic Imaging Report ---
INDICATION: Persistent headache x 6 days. EXAMINATION: Noncontrast brain CT was performed. FINDINGS: There is no extra-axial fluid collection. No intracranial hemorrhage. No intracranial mass or mass effect. No midline shift. The ventricles are normal in size and position. There is no focal parenchymal abnormality in the brain. Calvarial windows show no overt bony abnormalities. There is prominent mucosal thickening in the left sphenoid sinus. There is milder mucosal thickening in the right maxillary sinus. IMPRESSION: No acute intracranial abnormality. Underlying sinus disease, as described above. Dictated by: Dictated on workstation # [id number]
[2018-06-27] MEDS ORDERED: AMOX-358 PO (21:56)
[2018-06-27] MEDS ORDERED: KETOROLAC 30 MG/ML VIAL IVP ONE (22:00)
[2018-06-27] MEDS ORDERED: diphenhydrAMINE 50 MG/ML INJ (BENADRYL) IVP ONE (22:00)
[2018-06-27] MEDS ORDERED: cloNIDine 0.1 MG (CATAPRES) TAB PO ONE (22:00)
[2018-06-27] MEDS ORDERED: PROCHLORPERAZINE 10 MG/2ML INJ (COMPAZINE) IV ONE (22:00)
[2018-06-27 22:36] VITALS: BP 153/109
[2018-06-27 22:54] LABS: BACTERIA,URINE TRACE /HPF; BILIRUBIN,URINE NEGATIVE (NEGATIVE); CLARITY,URINE CLEAR; COLOR,URINE YELLOW; GLUCOSE, URINE (UA) NEGATIVE (NEGATIVE); KETONES,URINE NEGATIVE (NEGATIVE); LEUKOCYTE ESTERASE ,URINE NEGATIVE (NEGATIVE); NITRITE,URINE NEGATIVE (NEGATIVE); PH,URINE 6.5 (5-9); PROTEIN,URINE NEGATIVE (NEGATIVE); RBC,URINE RARE /HPF; UROBILINOGEN,URINE NORMAL (NORMAL)
== END 2018-06-27 22:39 | disposition home or self-care (01) ==
LOC: EDUNIT# 20:17 → ER 20:18
DX: R51 Headache (principal); J32.9 Chronic sinusitis, unspecified; I10 Essential (primary) hypertension; J45.990 Exercise induced bronchospasm; R40.2412 Glasgow coma scale score 13-15, at arrival to emergency department; Z87.442 Personal history of urinary calculi; Z82.49 Family history of ischemic heart disease and other diseases of the circulatory system
CPT/HCPCS: 36415; 70450; 80053; 81000; 84443; 84703; 85025; 96374; 96375